=== PATIENT | female | born 1990 | race Caucasian/White ===

== ENCOUNTER 2021-01-14 19:15 | Emergency (ER) | payer OTHER ==
[2021-01-14 19:22] VITALS: RESP 18
[2021-01-14 19:23] LABS: Glucose,Whole Blood 92 mg/dL (75-99)
[2021-01-14] MEDS ORDERED: SODIUM CHLORIDE 0.9% 1,000 ML IV STA (19:54)
[2021-01-14 20:12] LABS: Appearance,Urine Clear (Clear); Bilirubin,Urine Negative (Negative); Blood,Urine Negative (Negative); Color,Urine Light Yellow; Glucose,Urine (UA) Negative (Negative); Ketones,Urine Negative (Negative); Leukocyte Esterase,Urine Negative (Negative); Nitrite,Urine Negative (Negative); Protein,Urine Negative (Negative); Specific Gravity,Urine 1.005 (1.001-1.035); Urobilinogen,Urine <2.0 mg/dL (<2.0)
[2021-01-14 20:15] VITALS: PULSE 95
[2021-01-14 20:24] LABS: ALT 26 U/L (4-34); AST 27 U/L (14-36); African American GFR (CKD) >90 (>60 ml/min/1.73 sqM); Albumin 4.5 g/dL (3.5-5.0); Alkaline Phosphatase 78 U/L (38-126); Anion Gap 9 mmol/L; Blood Urea Nitrogen 13 mg/dL (7-17); Calcium 9.9 mg/dL (8.4-10.2); Carbon Dioxide 25 mmol/L (22-30); Chloride 103 mmol/L (98-107); Glucose 91 mg/dL (74-99); Non-African American GFR(CKD) >90 (>60 ml/min/1.73 sqM); Potassium 4.4 mmol/L (3.5-5.1); Sodium 137 mmol/L (137-145); Total Bilirubin 0.3 mg/dL (0.2-1.3); Total Protein 7.8 g/dL (6.3-8.2)
[2021-01-14 20:45] LABS: Basophils # (A) 0.1 k/uL (0-0.2); Basophils % (A) 1 %; Eosinophils # (A) 0.1 k/uL (0-0.7); Eosinophils % (A) 1 %; HCT 42.9 % (34.0-46.0); HGB 14.6 gm/dL (11.4-16.0); Lymphocytes # (A) 3.1 k/uL (1.0-4.8); Lymphocytes % (A) 31 %; MCH 30.3 pg (25.0-35.0); MCV 89.1 fL (80.0-100.0); Mean Platelet Volume 7.3; Monocytes # (A) 0.5 k/uL (0-1.0); Monocytes % (A) 5 %; Neutrophils % (A) 61 %; Platelet Count 351 k/uL (150-450); RBC 4.81 m/uL (3.80-5.40); RDW 13.4 % (11.5-15.5); WBC 9.8 k/uL (3.8-10.6)
--- NOTE | 2021-01-14 21:06 | CT ---
EXAMINATION TYPE: CT brain wo con DATE OF EXAM: 01/14/2021 COMPARISON: None available. HISTORY: Alterned, unequal pupils, hx migrains/auoras CT DLP: 1080.4 mGycm. Automated Exposure Control for Dose Reduction was Utilized. TECHNIQUE: CT scan of the head is performed without contrast. FINDINGS: There is no acute intracranial hemorrhage, mass effect, or midline shift identified. The ventricles and sulci are within normal limits in size. The globes are intact and the visualized sin uses are clear. IMPRESSION: No acute intracranial hemorrhage, mass effect, or midline shift is seen.
--- NOTE | 2021-01-14 21:23 | ED ---
General Adult HPI - General Chief complaint: Dizziness Stated complaint: Dizziness Time Seen by Provider: 01/14/21 19:54 Source: EMS Mode of arrival: EMS Limitations: no limitations - History of Present Illness Initial comments: Aminta is a 30-year-old female with a history of migraines who presents to the ER today via ambulance from work for evaluation of vision change, headache and period of confusion. Patient states that she got to work her coworkers noted that her pupils seem to be dilated left greater than right. Patient states that she just felt off. She was trying to obtain medical records from files and grandmother on files multiple times. She then felt very lightheaded and just very off her coworker called EMS. Upon their arrival patient reported feeling much better however she does have a headache. She has a history of migraine she did take migraine medication for this today. Patient does wear eye contacts and also uses Visine eyedrops that she's never noted this caused dilation arise before. - Related Data Home Medications Medication Instructions Recorded Confirmed Dextroamphetamine/Amphetamine 20 mg PO BID 01/14/21 01/14/21 [Adderall] Escitalopram [Lexapro] 10 mg PO HS 01/14/21 01/14/21 Fluticasone Nasal [place] [Flonase 1 spr EA NOSTRIL DAILY PRN 01/14/21 01/14/21 Nasal [place]] Galcanezumab-Gnlm [Emgality] 120 mg SQ Q30D 01/14/21 01/14/21 Ibuprofen [Motrin] 800 mg PO Q8H PRN 01/14/21 01/14/21 Rimegepant Sulfate [Nurtec Odt] 75 mg PO DAILY PRN 01/14/21 01/14/21 clonazePAM [KlonoPIN] 0.5 mg PO DAILY PRN 01/14/21 01/14/21 lisinopriL [Zestril] 10 mg PO HS 01/14/21 01/14/21 methocarbamoL [Robaxin] 500 mg PO QID PRN 01/14/21 01/14/21 Allergies Allergy/AdvReac Type Severity Reaction Status Date / Time No Known Allergies Allergy Verified 01/14/21 20:44 Review of Systems ROS Statement: Those systems with pertinent positive or pertinent negative responses have been documented in the HPI. ROS Other: All systems not noted in ROS Statement are negative. Past Medical History Additional Past Medical History / Comment(s): Migraines History of Any Multi-Drug Resistant Organisms: None Reported Additional Past Surgical History / Comment(s): [place] teeth Past Psychological History: Depression Smoking Status: Never smoker Past Alcohol Use History: None Reported Past Drug Use History: Marijuana General Exam - General Exam Comments Initial Comments: Physical Exam GENERAL: Patient is well-developed and well-nourished. Patient is nontoxic and well- hydrated and is in no distress. HENT: Normocephalic, Atraumatic. EYES: Pupil 5 mm right pupil 4 mm both are reactive, extraocular movements intact PULMONARY: Unlabored respirations. No audible rales rhonchi or wheezing was noted. CARDIOVASCULAR: There is a regular rate and rhythm without any murmurs gallops or rubs. ABDOMEN: Soft and nontender with normal bowel sounds. SKIN: Skin is clear with no lesions or rashes and otherwise unremarkable. : Deferred NEUROLOGIC: Patient is alert and oriented x3. Moving all extremities spontaneously MUSCULOSKELETAL: Normal extremities with adequate strength and full range of motion. No lower extremity swelling or edema. No calf tenderness. PSYCHIATRIC: Normal psychiatric evaluation. Limitations: no limitations Course Vital Signs 01/14/21 01/14/21 01/14/21 19:16 20:12 21:59 Temperature 98.6 F 98.3 F Pulse Rate 101 H 95 95 Respiratory 18 18 18 Rate Blood Pressure 131/94 120/86 O2 Sat by Pulse 97 97 97 Oximetry 01/14/21 22:11 Temperature Pulse Rate Respiratory Rate Blood Pressure 114/67 O2 Sat by Pulse Oximetry EKG Findings - EKG Comments: EKG Findings:: EKG obtained due to headache and vision change, EKG obtained in 1946 rate is 80 rhythm is sinus normal axis normal intervals no acute ST elevations or depressions no evidence of ischemia or infarction Medical Decision Making - Medical Decision Making The patient was seen and evaluated history is obtained from patient, upon my evaluation the patient is awake alert oriented no acute complaints she does have some and escorted uncertain if this is a sign for her, she does wear contact lenses she did use Visine eyedrops I did discuss that this can cause I dilation she was unaware of this Pupils are reactive and round, no significant vision changes, head CT was negative labs are unremarkable patient remained a symptomatically stay in ER and was comfortable with the plan for discharge home - Lab Data Result diagrams: 01/14/21 20:02 01/14/21 20:02 Lab Results 01/14/21 01/14/21 01/14/21 Range/Units 19:20 20:02 20:02 WBC 9.8 (3.8-10.6) k/uL RBC 4.81 (3.80-5.40) m/uL Hgb 14.6 (11.4-16.0) gm/dL Hct 42.9 (34.0-46.0) % MCV 89.1 (80.0-100.0) fL MCH 30.3 (25.0-35.0) pg MCHC 34.0 (31.0-37.0) g/dL RDW 13.4 (11.5-15.5) % Plt Count 351 (150-450) k/uL MPV 7.3 Neutrophils % 61 % Lymphocytes % 31 % Monocytes % 5 % Eosinophils % 1 % Basophils % 1 % Neutrophils # 6.0 (1.3-7.7) k/uL Lymphocytes # 3.1 (1.0-4.8) k/uL Monocytes # 0.5 (0-1.0) k/uL Eosinophils # 0.1 (0-0.7) k/uL Basophils # 0.1 (0-0.2) k/uL Sodium (137-145) mmol/L Potassium (3.5-5.1) mmol/L Chloride (98-107) mmol/L Carbon Dioxide (22-30) mmol/L Anion Gap mmol/L BUN (7-17) mg/dL Creatinine (0.52-1.04) mg/dL Est GFR (CKD-EPI)AfAm (>60 ml/min/1.73 sqM) Est GFR (CKD-EPI)NonAf (>60 ml/min/1.73 sqM) Glucose (74-99) mg/dL POC Glucose (mg/dL) 92 (75-99) mg/dL POC Glu [employer] ID Sammar[place], Elly Calcium (8.4-10.2) mg/dL Total Bilirubin (0.2-1.3) mg/dL AST (14-36) U/L ALT (4-34) U/L Alkaline Phosphatase (38-126) U/L Total Protein (6.3-8.2) g/dL Albumin (3.5-5.0) g/dL Urine Color Light Yellow Urine Appearance Clear (Clear) Urine pH 6.0 (5.0-8.0) Ur Specific [place] 1.005 (1.001-1.035) Urine Protein Negative (Negative) Urine Glucose (UA) Negative (Negative) Urine Ketones Negative (Negative) Urine Blood Negative (Negative) Urine Nitrite Negative (Negative) Urine Bilirubin Negative (Negative) Urine Urobilinogen <2.0 (<2.0) mg/dL Ur Leukocyte Esterase Negative (Negative) Urine HCG, Qual (Not Detectd) 01/14/21 01/14/21 Range/Units 20:02 20:02 WBC (3.8-10.6) k/uL RBC (3.80-5.40) m/uL Hgb (11.4-16.0) gm/dL Hct (34.0-46.0) % MCV (80.0-100.0) fL MCH (25.0-35.0) pg MCHC (31.0-37.0) g/dL RDW (11.5-15.5) % Plt Count (150-450) k/uL MPV Neutrophils % % Lymphocytes % % Monocytes % % Eosinophils % % Basophils % % Neutrophils # (1.3-7.7) k/uL Lymphocytes # (1.0-4.8) k/uL Monocytes # (0-1.0) k/uL Eosinophils # (0-0.7) k/uL Basophils # (0-0.2) k/uL Sodium 137 (137-145) mmol/L Potassium 4.4 (3.5-5.1) mmol/L Chloride 103 (98-107) mmol/L Carbon Dioxide 25 (22-30) mmol/L Anion Gap 9 mmol/L BUN 13 (7-17) mg/dL Creatinine 0.79 (0.52-1.04) mg/dL Est GFR (CKD-EPI)AfAm >90 (>60 ml/min/1.73 sqM) Est GFR (CKD-EPI)NonAf >90 (>60 ml/min/1.73 sqM) Glucose 91 (74-99) mg/dL POC Glucose (mg/dL) (75-99) mg/dL POC Glu [employer] ID Calcium 9.9 (8.4-10.2) mg/dL Total Bilirubin 0.3 (0.2-1.3) mg/dL AST 27 (14-36) U/L ALT 26 (4-34) U/L Alkaline Phosphatase 78 (38-126) U/L Total Protein 7.8 (6.3-8.2) g/dL Albumin 4.5 (3.5-5.0) g/dL Urine Color Urine Appearance (Clear) Urine pH (5.0-8.0) Ur Specific [place] (1.001-1.035) Urine Protein (Negative) Urine Glucose (UA) (Negative) Urine Ketones (Negative) Urine Blood (Negative) Urine Nitrite (Negative) Urine Bilirubin (Negative) Urine Urobilinogen (<2.0) mg/dL Ur Leukocyte Esterase (Negative) Urine HCG, Qual Not Detected (Not Detectd) Disposition Clinical Impression: Anisocoria, Headache Disposition: HOME SELF-CARE Condition: Stable Instructions (If sedation given, give patient instructions): Acute Headache (DC) Is patient prescribed a controlled substance at d/c from ED?: No Referrals: Harry Stevens III, MD [Primary Care Provider] - 1-2 days
[2021-01-14 22:01] VITALS: TEMP 98.3
[2021-01-14 22:12] VITALS: BP 114/67
== END 2021-01-14 22:12 | disposition home or self-care (01) ==
LOC: EC 19:15
DX: H57.02 Anisocoria (principal); F32.9 Major depressive disorder, single episode, unspecified; F12.90 Cannabis use, unspecified, uncomplicated; Z79.1 Long term (current) use of non-steroidal anti-inflammatories (NSAID); Z79.899 Other long term (current) drug therapy
CPT/HCPCS: 36415; 70450; 80053; 81003; 81025; 85025; 93005; 96360; 96361; 99285

== ENCOUNTER 2021-05-24 10:14 | Emergency (ER) | payer OTHER ==
[2021-05-24 10:20] VITALS: TEMP 97.3
[2021-05-24] MEDS ORDERED: SODIUM CHLORIDE 0.9% 1,000 ML IV STA (10:43)
[2021-05-24] MEDS ORDERED: diphenhydrAMINE 50 MG/ML 1 ML VIAL IVP STA (10:43)
[2021-05-24] MEDS ORDERED: METOCLOPRAMIDE 5 MG/ML 2 ML VIAL IVP STA (10:43)
--- NOTE | 2021-05-24 10:55 | ED ---
General Adult HPI - General Chief complaint: Abdominal Pain Stated complaint: possible appendicitis, Abd pain Time Seen by Provider: 05/24/21 10:21 Source: patient, RN notes reviewed Mode of arrival: wheelchair Limitations: no limitations - History of Present Illness Initial comments: 30-year-old female presents to the emergency room for a chief complaint of nausea and vomiting. Patient has had nausea vomiting for 3 days now. Patient states she went to [facility] yesterday but they were taking too long so left to go take a hot shower as this is the only thing that helps. Patient states she has had similar bouts of this before but they usually don't last as long. States she has mid abdominal pain. Her doctor told her it could be appendicitis but she cancelled her appointment because she thought she was getting better. Denies fevers. Denies history of abdominal surgeries. Does admit to smoking marijuana.Patient has no other complaints at this time including shortness of breath, chest pain, headache, or visual changes. - Related Data Home Medications Medication Instructions Recorded Confirmed Dextroamphetamine/Amphetamine 20 mg PO BID PRN 01/14/21 05/24/21 [Adderall] Escitalopram [Lexapro] 10 mg PO HS 01/14/21 05/24/21 Fluticasone Nasal [place] [Flonase 1 spr EA NOSTRIL DAILY PRN 01/14/21 05/24/21 Nasal [place]] Galcanezumab-Gnlm [Emgality] 120 mg SQ Q30D 01/14/21 05/24/21 Ibuprofen [Motrin] 800 mg PO Q8H PRN 01/14/21 05/24/21 Rimegepant Sulfate [Nurtec Odt] 75 mg PO DAILY PRN 01/14/21 05/24/21 clonazePAM [KlonoPIN] 0.5 mg PO DAILY PRN 01/14/21 05/24/21 lisinopriL [Zestril] 10 mg PO HS 01/14/21 05/24/21 methocarbamoL [Robaxin] 500 mg PO QID PRN 01/14/21 05/24/21 Previous Rx's Medication Instructions Recorded Ondansetron [Zofran ODT] 4 mg PO Q8HR PRN #15 tab 05/24/21 Allergies Allergy/AdvReac Type Severity Reaction Status Date / Time No Known Allergies Allergy Verified 05/24/21 11:48 Review of Systems ROS Statement: Those systems with pertinent positive or pertinent negative responses have been documented in the HPI. ROS Other: All systems not noted in ROS Statement are negative. Past Medical History Additional Past Medical History / Comment(s): Migraines History of Any Multi-Drug Resistant Organisms: None Reported Additional Past Surgical History / Comment(s): [place] teeth Past Psychological History: Depression Smoking Status: Never smoker Past Alcohol Use History: None Reported Past Drug Use History: Marijuana General Exam Limitations: no limitations General appearance: alert, in no apparent distress Head exam: Present: atraumatic Eye exam: Present: normal appearance, PERRL, EOMI. Absent: scleral icterus, conjunctival injection ENT exam: Present: normal exam, mucous membranes moist Neck exam: Present: normal inspection, full ROM. Absent: tenderness Respiratory exam: Present: normal lung sounds bilaterally. Absent: respiratory distress, wheezes Cardiovascular Exam: Present: regular rate, normal rhythm, normal heart sounds GI/Abdominal exam: Present: soft, tenderness (RLQ tenderness), normal bowel sounds. Absent: distended Neurological exam: Present: alert Course Vital Signs 05/24/21 10:18 Temperature 97.3 F L Pulse Rate 95 Respiratory 16 Rate Blood Pressure 139/105 O2 Sat by Pulse 97 Oximetry Medical Decision Making - Medical Decision Making vitals stable. Patient is well-appearing. Patient does have a mild white count which is likely reactive to vomiting. CMP is unremarkable. Urinalysis con taminated with squamous cells. The hCG is not detected. CT abdomen and pelvis shows ovaries appear to be enlarged with multiple cysts suspected. She was given several longer medications and did have significant improvement in symptoms. Patient states the only other thing that helps is hot showers. I suspect this is likely related to cannabis hyperemesis syndrome given she does admit to smoking marijuana. Discussed this possibility with patient and she is aware. Otherwise we will try Zofran and follow up with primary care. - Lab Data Result diagrams: 05/24/21 11:05/24/21 11: Lab Results 05/24/21 05/24/21 05/24/21 Range/Units 11: 11: 11: WBC 14.4 H (3.8-10.6) k/uL RBC 4.92 (3.80-5.40) m/uL Hgb 14.9 (11.4-16.0) gm/dL Hct 43.7 (34.0-46.0) % MCV 88.8 (80.0-100.0) fL MCH 30.3 (25.0-35.0) pg MCHC 34.1 (31.0-37.0) g/dL RDW 13.1 (11.5-15.5) % Plt Count 379 (150-450) k/uL MPV 7.1 Neutrophils % 78 % Lymphocytes % 16 % Monocytes % 5 % Eosinophils % 0 % Basophils % 0 % Neutrophils # 11.2 H (1.3-7.7) k/uL Lymphocytes # 2.3 (1.0-4.8) k/uL Monocytes # 0.7 (0-1.0) k/uL Eosinophils # 0.0 (0-0.7) k/uL Basophils # 0.0 (0-0.2) k/uL Sodium (137-145) mmol/L Potassium (3.5-5.1) mmol/L Chloride (98-107) mmol/L Carbon Dioxide (22-30) mmol/L Anion Gap mmol/L BUN (7-17) mg/dL Creatinine (0.52-1.04) mg/dL Est GFR (CKD-EPI)AfAm (>60 ml/min/1.73 sqM) Est GFR (CKD-EPI)NonAf (>60 ml/min/1.73 sqM) Glucose (74-99) mg/dL Calcium (8.4-10.2) mg/dL Total Bilirubin (0.2-1.3) mg/dL AST (14-36) U/L ALT (4-34) U/L Alkaline Phosphatase (38-126) U/L Total Protein (6.3-8.2) g/dL Albumin (3.5-5.0) g/dL Amylase (30-110) U/L Lipase (23-300) U/L Urine Color Yellow Urine Appearance Clear (Clear) Urine pH 8.0 (5.0-8.0) Ur Specific [place] >1.050 H (1.001-1.035) Urine Protein Trace H (Negative) Urine Glucose (UA) Negative (Negative) Urine Ketones Trace H (Negative) Urine Blood Negative (Negative) Urine Nitrite Negative (Negative) Urine Bilirubin Negative (Negative) Urine Urobilinogen <2.0 (<2.0) mg/dL Ur Leukocyte Esterase Small H (Negative) Urine RBC 12 H (0-5) /hpf Urine WBC 2 (0-5) /hpf Ur Squamous Epith Cells 6 H (0-4) /hpf Urine Bacteria Rare H (None) /hpf Urine Mucus Rare H (None) /hpf Urine HCG, Qual Not Detected (Not Detectd) 05/24/21 Range/Units 11:01 WBC (3.8-10.6) k/uL RBC (3.80-5.40) m/uL Hgb (11.4-16.0) gm/dL Hct (34.0-46.0) % MCV (80.0-100.0) fL MCH (25.0-35.0) pg MCHC (31.0-37.0) g/dL RDW (11.5-15.5) % Plt Count (150-450) k/uL MPV Neutrophils % % Lymphocytes % % Monocytes % % Eosinophils % % Basophils % % Neutrophils # (1.3-7.7) k/uL Lymphocytes # (1.0-4.8) k/uL Monocytes # (0-1.0) k/uL Eosinophils # (0-0.7) k/uL Basophils # (0-0.2) k/uL Sodium 139 (137-145) mmol/L Potassium 3.8 (3.5-5.1) mmol/L Chloride 107 (98-107) mmol/L Carbon Dioxide 23 (22-30) mmol/L Anion Gap 9 mmol/L BUN 15 (7-17) mg/dL Creatinine 0.73 (0.52-1.04) mg/dL Est GFR (CKD-EPI)AfAm >90 (>60 ml/min/1.73 sqM) Est GFR (CKD-EPI)NonAf >90 (>60 ml/min/1.73 sqM) Glucose 134 H (74-99) mg/dL Calcium 10.0 (8.4-10.2) mg/dL Total Bilirubin 0.5 (0.2-1.3) mg/dL AST 22 (14-36) U/L ALT 22 (4-34) U/L Alkaline Phosphatase 64 (38-126) U/L Total Protein 7.8 (6.3-8.2) g/dL Albumin 4.4 (3.5-5.0) g/dL Amylase 98 (30-110) U/L Lipase 42 (23-300) U/L Urine Color Urine Appearance (Clear) Urine pH (5.0-8.0) Ur Specific [place] (1.001-1.035) Urine Protein (Negative) Urine Glucose (UA) (Negative) Urine Ketones (Negative) Urine Blood (Negative) Urine Nitrite (Negative) Urine Bilirubin (Negative) Urine Urobilinogen (<2.0) mg/dL Ur Leukocyte Esterase (Negative) Urine RBC (0-5) /hpf Urine WBC (0-5) /hpf Ur Squamous Epith Cells (0-4) /hpf Urine Bacteria (None) /hpf Urine Mucus (None) /hpf Urine HCG, Qual (Not Detectd) Disposition Clinical Impression: Nausea & vomiting Disposition: HOME SELF-CARE Condition: Good Instructions (If sedation given, give patient instructions): Acute Nausea and Vomiting (ED) Additional Instructions: Please take medication as directed. Follow-up with your doctor in one to 2 days. Return to the emergency room for any worsening symptoms. Prescriptions: Ondansetron [Zofran ODT] 4 mg PO Q8HR PRN #15 tab PRN Reason: Nausea Is patient prescribed a controlled substance at d/c from ED?: No Referrals: Harry Stevens III, MD [Primary Care Provider] - 1-2 days Time of Disposition: 13:57
[2021-05-24 11:26] LABS: Basophils % (A) 0 %; Eosinophils % (A) 0 %; HCT 43.7 % (34.0-46.0); HGB 14.9 gm/dL (11.4-16.0); Lymphocytes # (A) 2.3 k/uL (1.0-4.8); Lymphocytes % (A) 16 %; MCH 30.3 pg (25.0-35.0); MCHC 34.1 g/dL (31.0-37.0); MCV 88.8 fL (80.0-100.0); Mean Platelet Volume 7.1; Monocytes # (A) 0.7 k/uL (0-1.0); Monocytes % (A) 5 %; Neutrophils # (A) 11.2 k/uL (1.3-7.7); Neutrophils % (A) 78 %; Platelet Count 379 k/uL (150-450); RBC 4.92 m/uL (3.80-5.40); RDW 13.1 % (11.5-15.5); WBC 14.4 k/uL (3.8-10.6)
[2021-05-24 11:48] LABS: ALT 22 U/L (4-34); AST 22 U/L (14-36); African American GFR (CKD) >90 (>60 ml/min/1.73 sqM); Albumin 4.4 g/dL (3.5-5.0); Alkaline Phosphatase 64 U/L (38-126); Amylase 98 U/L (30-110); Anion Gap 9 mmol/L; Blood Urea Nitrogen 15 mg/dL (7-17); Carbon Dioxide 23 mmol/L (22-30); Chloride 107 mmol/L (98-107); Glucose 134 mg/dL (74-99); Lipase 42 U/L (23-300); Non-African American GFR(CKD) >90 (>60 ml/min/1.73 sqM); Potassium 3.8 mmol/L (3.5-5.1); Sodium 139 mmol/L (137-145); Total Bilirubin 0.5 mg/dL (0.2-1.3); Total Protein 7.8 g/dL (6.3-8.2)
[2021-05-24] MEDS ORDERED: ONDANSETRON 4 MG/2 ML VIAL IVP STA ×2 (12:17→13:12)
--- NOTE | 2021-05-24 13:07 | CT ---
EXAMINATION TYPE: CT abdomen pelvis w con DATE OF EXAM: 05/24/2021 COMPARISON: None HISTORY: periumbilical pain, nausea, vomiting CT DLP: 1344.5 mGycm Automated exposure control for dose reduction was used. CONTRAST: CT scan of the abdomen pelvis is performed with IV Contrast, patient injected with 100 mL of Isovue 3 00. FINDINGS- LUNG BASES- No significant abnormality is appreciated. LIVER/GB- No gross abnormality is appreciated. PANCREAS- No gross abnormality is seen. SPLEEN- No gross abnormality is seen. ADRENALS- No gross abnormality is seen. KIDNEYS/BLADDER- no hydronephrosis nephrolithiasis or renal mass. BOWEL-bowel gas pattern nonspecific with no obstruction. Occasional diverticula of the colon.. Belén l appendix. LYMPH NODES- No greater than 1cm abdominal or pelvic lymph nodes areappreciated. OSSEOUS STRUCTURES- No significant abnormality is seen. OTHER- ovaries appear to be enlarged in the left with multiple cyst suspected correlate clinically. Intrauterine device noted. IMPRESSION- 1. No prominence of the left orbit with multiple suspected cysts correlate clinically.
[2021-05-24 13:38] LABS: Appearance,Urine Clear (Clear); Bacteria,Urine Rare /hpf; Bilirubin,Urine Negative (Negative); Blood,Urine Negative (Negative); Color,Urine Yellow; Glucose,Urine (UA) Negative (Negative); Ketones,Urine Trace (Negative); Leukocyte Esterase,Urine Small (Negative); Mucus,Urine Rare /hpf; Nitrite,Urine Negative (Negative); Protein,Urine Trace (Negative); RBC,Urine 12 /hpf (0-5); Squamous Epithelial Cell,Urine 6 /hpf (0-4); Urobilinogen,Urine <2.0 mg/dL (<2.0); WBC,Urine 2 /hpf (0-5)
[2021-05-24 13:40] LABS: Specific Gravity,Urine >1.050 (1.001-1.035)
[2021-05-24 15:01] VITALS: BP 129/85; PULSE 80; RESP 18
== END 2021-05-24 14:18 | disposition home or self-care (01) ==
LOC: EC 10:14
DX: R11.2 Nausea with vomiting, unspecified (principal); R10.9 Unspecified abdominal pain
CPT/HCPCS: 36415; 80053; 82150; 83690; 85025; 81001; 81025; 74177; 99284; 96374; 96375; 96376; 96361; J1200; J2765; J2405; Q9967

== ENCOUNTER 2022-02-28 08:57 | Emergency (ER) | payer OTHER ==
[2022-02-28 09:08] VITALS: RESP 18
[2022-02-28] MEDS ORDERED: SODIUM CHLORIDE 0.9% 2,000 ML IV STA (09:15)
[2022-02-28] MEDS ORDERED: ONDANSETRON 4 MG/2 ML VIAL IVP STA (09:15)
[2022-02-28 09:42] LABS: Basophils % (A) 0 %; Eosinophils % (A) 0 %; HCT 47.6 % (34.0-46.0); Lymphocytes # (A) 2.6 k/uL (1.0-4.8); Lymphocytes % (A) 22 %; MCH 30.7 pg (25.0-35.0); MCHC 33.7 g/dL (31.0-37.0); Mean Platelet Volume 7.2; Monocytes # (A) 0.5 k/uL (0-1.0); Monocytes % (A) 5 %; Neutrophils # (A) 8.2 k/uL (1.3-7.7); Neutrophils % (A) 71 %; Platelet Count 446 k/uL (150-450); RBC 5.23 m/uL (3.80-5.40); WBC 11.5 k/uL (3.8-10.6)
[2022-02-28 09:51] LABS: Appearance,Urine Cloudy (Clear); Bacteria,Urine Occasional /hpf; Bilirubin,Urine 1+ (Negative); Blood,Urine Trace (Negative); Calcium Oxalate Crystals,Urine Moderate /hpf; Color,Urine Yellow; Glucose,Urine (UA) Negative (Negative); Ketones,Urine 1+ (Negative); Leukocyte Esterase,Urine Large (Negative); Mucus,Urine Many /hpf; Nitrite,Urine Negative (Negative); Protein,Urine 1+ (Negative); RBC,Urine 16 /hpf (0-5); Specific Gravity,Urine 1.036 (1.001-1.035); Squamous Epithelial Cell,Urine 11 /hpf (0-4); WBC,Urine 20 /hpf (0-5)
--- NOTE | 2022-02-28 09:51 | ED ---
General Adult HPI - General Chief complaint: Nausea/Vomiting/Diarrhea Stated complaint: 6wks preg/NVD Time Seen by Provider: 02/28/22 09:04 Source: patient, RN notes reviewed Mode of arrival: wheelchair Limitations: no limitations - History of Present Illness Initial comments: 31-year-old female presents emergency Department chief complaint of nausea vom iting . Patient states she is proximal was 6 weeks patient is A0 has not scheduled be [facility] appointment at this point she states she has a mild abdominal pain around periumbilical region denies any vaginal bleeding or vaginal discharge. Denies fevers or chills no dysuria no diarrhea no constipation. - Related Data Home Medications Medication Instructions Recorded Confirmed Dextroamphetamine/Amphetamine 20 mg PO BID PRN 01/14/21 05/24/21 [Adderall] Escitalopram [Lexapro] 10 mg PO HS 01/14/21 05/24/21 Fluticasone Nasal [place] [Flonase 1 spr EA NOSTRIL DAILY PRN 01/14/21 05/24/21 Nasal [place]] Galcanezumab-Gnlm [Emgality] 120 mg SQ Q30D 01/14/21 05/24/21 Ibuprofen [Motrin] 800 mg PO Q8H PRN 01/14/21 05/24/21 Rimegepant Sulfate [Nurtec Odt] 75 mg PO DAILY PRN 01/14/21 05/24/21 clonazePAM [KlonoPIN] 0.5 mg PO DAILY PRN 01/14/21 05/24/21 lisinopriL [Zestril] 10 mg PO HS 01/14/21 05/24/21 methocarbamoL [Robaxin] 500 mg PO QID PRN 01/14/21 05/24/21 Previous Rx's Medication Instructions Recorded Ondansetron [Zofran ODT] 4 mg PO Q8HR PRN #15 tab 05/24/21 Allergies Allergy/AdvReac Type Severity Reaction Status Date / Time No Known Allergies Allergy Verified 02/28/22 09:03 Review of Systems ROS Statement: Those systems with pertinent positive or pertinent negative responses have been documented in the HPI. ROS Other: All systems not noted in ROS Statement are negative. Past Medical History Additional Past Medical History / Comment(s): Migraines, UTI History of Any Multi-Drug Resistant Organisms: None Reported Additional Past Surgical History / Comment(s): [place] teeth Past Psychological History: Depression Smoking Status: Never smoker Past Alcohol Use History: None Reported Past Drug Use History: None Reported General Exam Limitations: no limitations General appearance: alert, in no apparent distress Head exam: Present: atraumatic, normocephalic, normal inspection Eye exam: Present: normal appearance, PERRL, EOMI. Absent: scleral icterus, conjunctival injection, periorbital swelling ENT exam: Present: normal exam, normal oropharynx, mucous membranes moist Neck exam: Present: normal inspection, full ROM. Absent: tenderness, meningismus, lymphadenopathy Respiratory exam: Present: normal lung sounds bilaterally. Absent: respiratory distress, wheezes, rales, rhonchi, stridor Cardiovascular Exam: Present: regular rate, normal rhythm, normal heart sounds. Absent: systolic murmur, diastolic murmur, rubs, gallop, clicks GI/Abdominal exam: Present: soft, normal bowel sounds. Absent: distended, tenderness, guarding, rebound, rigid Course Vital Signs 02/28/22 09:00 Temperature 98.6 F Pulse Rate 91 Respiratory 18 Rate Blood Pressure 151/93 O2 Sat by Pulse 98 Oximetry Medical Decision Making - Medical Decision Making 31-year-old female presented for nausea vomiting . Patient was reeval uated and states that her nausea has greatly improved. She did shovel this with her prior pregnancies she has no complaints of abdominal pain her abdomen is soft and nontender. I didn't updated on ultrasound and blood work results patient had an elevated hCG at 3700 with no ultrasound findings takes fingers is concerning for possible miscarriage, ectopic or early IUP. She needs to have blood work rechecked in 2 days she is to have very close follow-up with [facility] in or return for any pain or any other complaints. - Lab Data Result diagrams: 02/28/22 09:26 02/28/22 09:26 Lab Results 02/28/22 02/28/22 02/28/22 Range/Units 09:17 09:26 09:26 WBC 11.5 H (3.8-10.6) k/uL RBC 5.23 (3.80-5.40) m/uL Hgb 16.0 (11.4-16.0) gm/dL Hct 47.6 H (34.0-46.0) % MCV 91.0 (80.0-100.0) fL MCH 30.7 (25.0-35.0) pg MCHC 33.7 (31.0-37.0) g/dL RDW 14.0 (11.5-15.5) % Plt Count 446 (150-450) k/uL MPV 7.2 Neutrophils % 71 % Lymphocytes % 22 % Monocytes % 5 % Eosinophils % 0 % Basophils % 0 % Neutrophils # 8.2 H (1.3-7.7) k/uL Lymphocytes # 2.6 (1.0-4.8) k/uL Monocytes # 0.5 (0-1.0) k/uL Eosinophils # 0.0 (0-0.7) k/uL Basophils # 0.0 (0-0.2) k/uL Sodium (137-145) mmol/L Potassium (3.5-5.1) mmol/L Chloride (98-107) mmol/L Carbon Dioxide (22-30) mmol/L Anion Gap mmol/L BUN (7-17) mg/dL Creatinine (0.52-1.04) mg/dL Est GFR (CKD-EPI)AfAm (>60 ml/min/1.73 sqM) Est GFR (CKD-EPI)NonAf (>60 ml/min/1.73 sqM) Glucose (74-99) mg/dL Calcium (8.4-10.2) mg/dL Total Bilirubin (0.2-1.3) mg/dL AST (14-36) U/L ALT (4-34) U/L Alkaline Phosphatase (38-126) U/L Total Protein (6.3-8.2) g/dL Albumin (3.5-5.0) g/dL HCG, Quant mIU/mL Urine Color Yellow Urine Appearance Cloudy H (Clear) Urine pH 7.0 (5.0-8.0) Ur Specific [place] 1.036 H (1.001-1.035) Urine Protein 1+ H (Negative) Urine Glucose (UA) Negative (Negative) Urine Ketones 1+ H (Negative) Urine Blood Trace H (Negative) Urine Nitrite Negative (Negative) Urine Bilirubin 1+ H (Negative) Urine Urobilinogen 4.0 (<2.0) mg/dL Ur Leukocyte Esterase Large H (Negative) Urine RBC 16 H (0-5) /hpf Urine WBC 20 H (0-5) /hpf Ur Squamous Epith Cells 11 H (0-4) /hpf Calcium Oxalate Crystal Moderate H (None) /hpf Urine Bacteria Occasional H (None) /hpf Urine Mucus Many H (None) /hpf Urine HCG, Qual Detected (Not Detectd) 02/28/22 02/28/22 Range/Units 09:26 09:26 WBC (3.8-10.6) k/uL RBC (3.80-5.40) m/uL Hgb (11.4-16.0) gm/dL Hct (34.0-46.0) % MCV (80.0-100.0) fL MCH (25.0-35.0) pg MCHC (31.0-37.0) g/dL RDW (11.5-15.5) % Plt Count (150-450) k/uL MPV Neutrophils % % Lymphocytes % % Monocytes % % Eosinophils % % Basophils % % Neutrophils # (1.3-7.7) k/uL Lymphocytes # (1.0-4.8) k/uL Monocytes # (0-1.0) k/uL Eosinophils # (0-0.7) k/uL Basophils # (0-0.2) k/uL Sodium 140 (137-145) mmol/L Potassium 3.4 L (3.5-5.1) mmol/L Chloride 104 (98-107) mmol/L Carbon Dioxide 22 (22-30) mmol/L Anion Gap 14 mmol/L BUN 10 (7-17) mg/dL Creatinine 0.82 (0.52-1.04) mg/dL Est GFR (CKD-EPI)AfAm >90 (>60 ml/min/1.73 sqM) Est GFR (CKD-EPI)NonAf >90 (>60 ml/min/1.73 sqM) Glucose 128 H (74-99) mg/dL Calcium 9.7 (8.4-10.2) mg/dL Total Bilirubin 0.6 (0.2-1.3) mg/dL AST 27 (14-36) U/L ALT 28 (4-34) U/L Alkaline Phosphatase 69 (38-126) U/L Total Protein 8.2 (6.3-8.2) g/dL Albumin 4.8 (3.5-5.0) g/dL HCG, Quant 3700.8 mIU/mL Urine Color Urine Appearance (Clear) Urine pH (5.0-8.0) Ur Specific [place] (1.001-1.035) Urine Protein (Negative) Urine Glucose (UA) (Negative) Urine Ketones (Negative) Urine Blood (Negative) Urine Nitrite (Negative) Urine Bilirubin (Negative) Urine Urobilinogen (<2.0) mg/dL Ur Leukocyte Esterase (Negative) Urine RBC (0-5) /hpf Urine WBC (0-5) /hpf Ur Squamous Epith Cells (0-4) /hpf Calcium Oxalate Crystal (None) /hpf Urine Bacteria (None) /hpf Urine Mucus (None) /hpf Urine HCG, Qual (Not Detectd) Disposition Clinical Impression: Nausea/vomiting in Disposition: HOME SELF-CARE Condition: Stable Instructions (If sedation given, give patient instructions): Acute Nausea and Vomiting (ED) Additional Instructions: Please have close follow-up with [facility]. Repeat lab work and 48 hours.Please return to the Emergency Department if symptoms worsen or any other concerns. Is patient prescribed a controlled substance at d/c from ED?: No Referrals: Harry Stevens III, MD [Primary Care Provider] - 1-2 days Time of Disposition: 11:08
[2022-02-28 09:54] LABS: ALT 28 U/L (4-34); AST 27 U/L (14-36); African American GFR (CKD) >90 (>60 ml/min/1.73 sqM); Albumin 4.8 g/dL (3.5-5.0); Alkaline Phosphatase 69 U/L (38-126); Anion Gap 14 mmol/L; Blood Urea Nitrogen 10 mg/dL (7-17); Calcium 9.7 mg/dL (8.4-10.2); Carbon Dioxide 22 mmol/L (22-30); Chloride 104 mmol/L (98-107); Glucose 128 mg/dL (74-99); Non-African American GFR(CKD) >90 (>60 ml/min/1.73 sqM); Potassium 3.4 mmol/L (3.5-5.1); Sodium 140 mmol/L (137-145); Total Bilirubin 0.6 mg/dL (0.2-1.3); Total Protein 8.2 g/dL (6.3-8.2)
[2022-02-28] MEDS ORDERED: METOCLOPRAMIDE 5 MG/ML 2 ML VIAL IVP STA (09:57)
[2022-02-28] MEDS ORDERED: diphenhydrAMINE 50 MG/ML 1 ML VIAL IVP STA (09:57)
--- NOTE | 2022-02-28 10:04 | US ---
EXAMINATION TYPE: Ultrasound OB <= 14 week fetus DATE OF EXAM: 02/28/2022 9:53 AM COMPARISON: NONE CLINICAL HISTORY: 31-year-old female pain. N/V EXAM PERFORMED: Transabdominal (TA) FINDINGS: EXAM MEASUREMENTS: GESTATIONAL AGE / DATING Physician Established: Not yet established Dates by LMP: (5 weeks/3 days) EDC: 10/28/2022 Dates by First Scan: No previous this is first scan Dates by Current Scan for: No IUP seen at this time MATERNAL ANATOMY Uterus: 8.4 x 6.1 x 5.6cm Right Ovary: 2.2 x 1.4 x 1.8cm Left Ovary: 3.6 x 2.0 x 2.6cm Post CDS / Adnexa: wnl Presence of free fluid: no Presence of corpus luteal cyst: not seen Presence of subchorionic bleed: no GESTATION / SURVEY IUP: No IUP seen at this time Date of LMP: 01/21/2022 Beta HcG (if available): Not available at time of exam IMPRESSION: The exam was performed with transabdominal technique. No visualized intrauterine . Note that the beta-hCG threshold for visualization of a gestational sac by transabdominal scanning is 2500. If there is a positive status, appropriate follow-up recommended to ensure the appearance o f a normal intrauterine . Failed and nonvisualized ectopic are in the differential at this time.
[2022-02-28 11:19] VITALS: BP 140/82; PULSE 72; TEMP 98.9
== END 2022-02-28 11:18 | disposition home or self-care (01) ==
LOC: EC 08:57
DX: O21.9 Vomiting of pregnancy, unspecified (principal); Z3A.01 Less than 8 weeks gestation of pregnancy
CPT/HCPCS: 36415; 80053; 85025; 81001; 81025; 84702; 87086; 76801; 99284; 96374; 96375; 96361; J1200; J2765; J2405

== ENCOUNTER → 2022-04-02 | Outpatient (CLI) | payer OTHER ==
--- NOTE | 2022-04-04 09:01 | US ---
EXAMINATION TYPE: Ultrasound OB <= 14 week fetus DATE OF EXAM: 04/02/2022 3:53 PM COMPARISON: 02/28/2022 CLINICAL HISTORY: 31-year-old female [id number] ENCOUNTER FOR OTHER SPECIFIED SCREENING. Viabili ty. . EXAM PERFORMED: Transabdominal (TA) FINDINGS: EXAM MEASUREMENTS: GESTATIONAL AGE / DATING Physician Established: Not yet established. Dates by LMP: (10 weeks/1 day) EDC: 10/28/2022 Dates by First Scan: This is first scan Dates by Current Scan for: (9 weeks/4 days) EDC: 11/01/2022 MATERNAL ANATOMY Uterus: 15.4 x 9.1 x 7.1 cm. Anteverted. Right Ovary: 4.3 x 3.1 x 2.2 cm. Left Ovary: 4.5 x 1.9 x 1.9 cm. Post CDS / Adnexa: Appear wnl Presence of free fluid: None seen. Presence of corpus luteal cyst: Not seen Presence of subchorionic bleed: No GESTATION / SURVEY CRL: 2.82 cm. (9 weeks/4 days) Yolk Sac (normal less than 6mm): 4.6 mm Heart Rate: 165 bpm Rhythm: Normal IUP: Viable IUP Nuchal Translucency 10-14wks (normal less than 3mm): Not well seen. Date of LMP: 01/21/2022 Beta HcG (if available): Not available. No perigestational bleed is seen. No pelvic free fluid identified. IMPRESSION: 1. Single live intrauterine with estimated gestational age of 10 weeks 1 day by LMP. Curren t ultrasound biometry is smaller but concordant at 9 weeks 4 days. Follow-up as clinically indicated. 2. Otherwise, complete survey recommended at 18-20 weeks.
== END | disposition home or self-care (01) ==
LOC: RADUSWWP 15:30
PROVIDERS: ATTEND Obstetrics & Gynecology
DX: Z36.89 Encounter for other specified antenatal screening (principal); Z3A.10 10 weeks gestation of pregnancy
CPT/HCPCS: 76801

== ENCOUNTER 2022-04-28 08:22 | Emergency (ER) | payer OTHER ==
[2022-04-28 08:33] VITALS: TEMP 98.5
[2022-04-28] MEDS ORDERED: ACETAMINOPHEN IV (For NPO) 1,000 MG in EMPTY BAG 1 BAG IVPB STA (08:54)
[2022-04-28] MEDS ORDERED: METOCLOPRAMIDE 5 MG/ML 2 ML VIAL IVP STA (08:54)
[2022-04-28] MEDS ORDERED: SODIUM CHLORIDE 0.9% 1,000 ML IV ONE (08:54)
--- NOTE | 2022-04-28 09:30 | ED ---
General Adult HPI - General Chief complaint: Headache Stated complaint: Headache,14wks preg Time Seen by Provider: 04/28/22 08:33 Source: patient, RN notes reviewed, old records reviewed Mode of arrival: ambulatory Limitations: no limitations - History of Present Illness Initial comments: This is a 31-year-old female with a past medical history including previous migraines presented to [facility] department for continued migraine. The patient is 14 weeks at this time and stated that she has had a migraine since Tuesday. The patient stated the migraine was starting on the right side temporal area is normal to the left side. The patient stated that it is a typical migraine for her including photophobia and phonophobia with intermittent nausea. 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 The patient was told by her STRUCTURES ENGINEER that Imitrex was safe in moderation and she did take this yesterday without any relief. Because the patient's bagging was continued and not relieved, the patient came to emergency department for evaluation. The patient did state that she has received occipital nerve blocks by her neurologist with minimal relief as well. The patient came today because she did not have any other medications to help with her pain and discomfort. The patient stated that she has intermittent vision loss in the left eye which is typical and baseline for her migraines. The patient stated that her vision is actually improved from previous migraines. The patient denied any other acute pain or complaints at this time and was resting in bed comfortably. The patient denied any fevers, chills as well as any nausea and vomiting. - Related Data Home Medications Medication Instructions Recorded Confirmed Dextroamphetamine/Amphetamine 20 mg PO BID PRN 01/14/21 05/24/21 [Adderall] Escitalopram [Lexapro] 10 mg PO HS 01/14/21 05/24/21 Fluticasone Nasal [place] [Flonase 1 spr EA NOSTRIL DAILY PRN 01/14/21 05/24/21 Nasal [place]] Galcanezumab-Gnlm [Emgality] 120 mg SQ Q30D 01/14/21 05/24/21 Ibuprofen [Motrin] 800 mg PO Q8H PRN 01/14/21 05/24/21 Rimegepant Sulfate [Nurtec Odt] 75 mg PO DAILY PRN 01/14/21 05/24/21 clonazePAM [KlonoPIN] 0.5 mg PO DAILY PRN 01/14/21 05/24/21 lisinopriL [Zestril] 10 mg PO HS 01/14/21 05/24/21 methocarbamoL [Robaxin] 500 mg PO QID PRN 01/14/21 05/24/21 Previous Rx's Medication Instructions Recorded Ondansetron [Zofran ODT] 4 mg PO Q8HR PRN #15 tab 05/24/21 Allergies Allergy/AdvReac Type Severity Reaction Status Date / Time No Known Allergies Allergy Verified 04/28/22 08:32 Review of Systems ROS Statement: Those systems with pertinent positive or pertinent negative responses have been documented in the HPI. ROS Other: All systems not noted in ROS Statement are negative. Past Medical History Additional Past Medical History / Comment(s): Migraines, UTI History of Any Multi-Drug Resistant Organisms: None Reported Additional Past Surgical History / Comment(s): [place] teeth Past Psychological History: Depression Smoking Status: Former smoker Past Alcohol Use History: None Reported Past Drug Use History: None Reported General Exam Limitations: no limitations General appearance: alert, in no apparent distress Head exam: Present: atraumatic, normocephalic Eye exam: Present: normal appearance, PERRL, EOMI Pupils: Present: normal accommodation ENT exam: Present: normal exam Neck exam: Present: normal inspection Respiratory exam: Present: normal lung sounds bilaterally Cardiovascular Exam: Present: regular rate, normal rhythm, normal heart sounds GI/Abdominal exam: Present: soft, normal bowel sounds Rectal exam: Present: deferred Extremities exam: Present: normal inspection, full ROM, normal capillary refill Back exam: Present: normal inspection, full ROM Neurological exam: Present: alert, oriented X3, CN II-XII intact, normal gait Psychiatric exam: Present: normal affect, normal mood Skin exam: Present: warm, dry Course Vital Signs 04/28/22 04/28/22 08:29 10:20 Temperature 98.5 F Pulse Rate 121 H 97 Respiratory 20 15 Rate Blood Pressure 131/84 126/82 O2 Sat by Pulse 97 100 Oximetry Medical Decision Making - Medical Decision Making The patient was seen and evaluated emergency department. Physical exam, the patient was sitting in bed without any acute distress. Vital signs admission did show tachycardia however the remainder of the left lower normal limits. The patient was not in acute distress. Because the patient is 14 weeks , the patient did not receive a normal headache cocktail instead did receive an IV with normal saline fluid, 1 g of Tylenol IV as well as 10 mg of Reglan as the patient tried multiple other medications in the past and was so it limited to the medication choices. The patient was allowed to remain stable emergency department on reevaluation several hours later stated that her headache was significantly improved. The patient was advised to follow-up with her neurologist as well as her STRUCTURES ENGINEER for continued workup and evaluation. The patient was able to tolerate by mouth in the emergency department and was able to inflate centimeters apart without any acute assistance. The patient stated her headache was greatly improved and she was back to her baseline. The patient was doing so for discharge and had all of her questions answered appropriately. The patient was discharged home in stable condition with her . Disposition Clinical Impression: Migraine headache Disposition: HOME SELF-CARE Condition: Stable Instructions (If sedation given, give patient instructions): Acute Headache (ED) Additional Instructions: Please follow up with your neurologist this week if possible for further evaluation and management. Please also follow up with her STRUCTURES ENGINEER for continued evaluation. Is patient prescribed a controlled substance at d/c from ED?: No Referrals: Harry Stevens III, MD [Primary Care Provider] - 1-2 days Time of Disposition: 10:15
[2022-04-28 10:21] VITALS: BP 126/82; PULSE 97; RESP 15
== END 2022-04-28 10:27 | disposition home or self-care (01) ==
LOC: EC 08:22
DX: O99.352 Diseases of the nervous system complicating pregnancy, second trimester (principal); G43.909 Migraine, unspecified, not intractable, without status migrainosus; Z3A.14 14 weeks gestation of pregnancy; Z87.891 Personal history of nicotine dependence
CPT/HCPCS: 96365 ×2; 96375 ×2; 96361; 99283 ×2; J2765; J0131

== ENCOUNTER → 2022-06-04 | Outpatient (CLI) | payer OTHER ==
--- NOTE | 2022-06-05 09:49 | US ---
EXAMINATION TYPE: US OB anatomy transabd DATE OF EXAM: 06/04/2022 COMPARISON: 04/02/2022 HISTORY: 31-year-old female [id number] MATERNAL CARE FOR EXCESS GROWTH Anatomy. . TECHNIQUE: Transabdominal (TA) FINDINGS: EXAM MEASUREMENTS: GESTATIONAL AGE / DATING Physician Established: (19 weeks/1 day) EDC: 10/28/2022 Dates by LMP: (19 weeks/1 days) EDC: 10/28/2022 Dates by First Scan: (18 weeks/4 days) EDC: 11/01/2022 Dates by Current Scan for: (18 weeks/6 days) EDC: 10/30/2022 SURVEY IUP: Single PLACENTA: Posterior PREVIA: Low-lying placenta. Measures 2.5 cm from internal os, post void. 1.6 cm from the internal os , prevoid. No tera previa. SIMON: 13.4 cm Normal CERVICAL LENGTH (transabdominal: norm > 3.0cm): 3.9 cm BIOMETRY PRESENTATION: Variable BPD: 4.41 cm 19 weeks / 2 days HC: 15.99 cm 18 weeks / 6 days AC: 13.85 cm 19 weeks / 2 days FL: 2.91 cm 19 weeks / 0 days ESTIMATED WEIGHT IN GRAMS: 274.08 grams ESTIMATED WEIGHT IN LBS/OZ: 0 lbs. 10 oz. WEIGHT PERCENTAGE BASED ON ESTABLISHED DATE: 43.0 % HC/AC: 1.15 Normal FL/AC: 21.04 HEART RATE: 159 bpm RHYTHM: Normal ANATOMY SEEN (within normal limits): Lateral Vent (< 1 cm) 0.64 cm Cisterna Magna (< 1.1 cm) 0.43 cm Nuchal Fold (< 0.6 cm) 0.27 cm Cerebellum (varies with age) 1.93 cm Choroid Plexus (bilateral) Midline Falx Cavus Septi Pellucidi Stomach Diaphragm Bladder Cord Insert Three Vessel Cord Longitudinal Spine Transverse Spine Arm # 2 Legs (bilateral) ANATOMY NOT SEEN (due to positioning): Four Chamber Heart Outflow tracts: LVOT/RVOT Situs Arm # 1 Kidneys (bilateral) Nose / Lips Stonecutter Apprentice Hand notes: Patient is scheduled to come back for OB call back for structures not visualized d ue to position. IMPRESSION: 1. Single live intrauterine with estimated gestational age of 19 weeks 1 day by LMP. Curren t ultrasound biometry is concordant (18 weeks 6 days). EFW 43rd percentile. Normal, 2 days more growt h than expected from 04/02/2022. 2. A number of structures on the survey could not be evaluated due to positioning (as not ed above). The patient is scheduled for a oblique call back to reassess these structures. The remaini ng visualized structures appear normal. 3. Note low lying posterior placenta measuring 2.5 cm from the internal cervical os.
== END | disposition home or self-care (01) ==
LOC: RADUSWWP 15:16
PROVIDERS: ATTEND Obstetrics & Gynecology
DX: O36.62X0 Maternal care for excessive fetal growth, second trimester, not applicable or unspecified (principal); Z3A.19 19 weeks gestation of pregnancy
CPT/HCPCS: 76811

== ENCOUNTER → 2022-06-08 | Outpatient (CLI) | payer OTHER ==
--- NOTE | 2022-06-08 16:12 | US ---
EXAMINATION TYPE: US OB Call Back DATE OF EXAM: 06/08/2022 COMPARISON: NONE CLINICAL HISTORY: 81-year-old female ADDITIONAL IMAGING. GESTATIONAL AGE / DATING Dates by Initial Survey Scan: (19 weeks/5 days) EDC: 10/28/2022 HEART RATE: 158 bpm RHYTHM: Normal ANATOMY SEEN (second anatomic survey look): Four Chamber Heart Stomach Situs Nose / Lips Kidneys (bilateral) Arms (bilateral) ANATOMY SUBOPTIMAL (due to positioning) Outflow tracts:? LVOT/RVOT IMPRESSION: The outflow tracts (LVOT/RVOT) remain suboptimally visualized. If desired, rescan can be performed in 1 to 2 weeks. Otherwise, the remaining structures appear normal.
== END | disposition home or self-care (01) ==
LOC: RADUSWWP 10:29
PROVIDERS: ATTEND Obstetrics & Gynecology
DX: Z36.89 Encounter for other specified antenatal screening (principal); Z3A.19 19 weeks gestation of pregnancy

== ENCOUNTER → 2022-07-26 | Outpatient (CLI) | payer OTHER ==
[2022-07-26 14:51] LABS: HCT 38.7 % (37.2-46.3); HGB 12.6 g/dL (12.0-15.0); MCH 30.1 pg (27.0-32.0); MCHC 32.6 g/dL (32.0-37.0); MCV 92.4 fL (80.0-97.0); Mean Platelet Volume 9.5 fL (9.5-12.2); NRBC Per 100 WBC 0 /100 WBCS (0.0-0.0); Platelet Count 377 X 10*3/uL (140-440); RBC 4.19 X 10*6/uL (4.10-5.20); RDW 13.7 % (11.5-14.5); WBC 9.12 X 10*3/uL (4.50-10.00)
== END | disposition home or self-care (01) ==
LOC: LABWHC1 08:48
PROVIDERS: ATTEND Obstetrics & Gynecology
DX: Z34.82 Encounter for supervision of other normal pregnancy, second trimester (principal); Z3A.00 Weeks of gestation of pregnancy not specified
CPT/HCPCS: 36415; 82950; 85027

== ENCOUNTER 2022-10-14 15:05 | Outpatient (CLI) | payer OTHER ==
[2022-10-14 15:30] LABS: Amorphous Sediment,Urine Moderate /hpf; Appearance,Urine Cloudy (Clear); Bilirubin,Urine Negative (Negative); Blood,Urine Negative (Negative); Color,Urine Yellow; Glucose,Urine (UA) Negative (Negative); Hyaline Casts,Urine 12 /lpf (0-2); Ketones,Urine Negative (Negative); Leukocyte Esterase,Urine Small (Negative); Mucus,Urine Many /hpf; Nitrite,Urine Negative (Negative); PH, Urine 6.5 (5.0-8.0); Protein,Urine 3+ (Negative); RBC,Urine 3 /hpf (0-5); Specific Gravity,Urine 1.023 (1.001-1.035); Squamous Epithelial Cell,Urine 15 /hpf (0-4); WBC,Urine 21 /hpf (0-5)
[2022-10-14 15:39] LABS: Creatinine,Urine Random 242.2 mg/dL
[2022-10-14 16:04] LABS: Basophils % (A) 0 %; Eosinophils # (A) 0.1 k/uL (0-0.7); Eosinophils % (A) 1 %; HCT 35.8 % (34.0-46.0); HGB 11.8 gm/dL (11.4-16.0); Lymphocytes # (A) 1.9 k/uL (1.0-4.8); Lymphocytes % (A) 22 %; MCH 28.4 pg (25.0-35.0); MCHC 33.1 g/dL (31.0-37.0); Mean Platelet Volume 7.8; Monocytes # (A) 0.5 k/uL (0-1.0); Monocytes % (A) 5 %; Neutrophils # (A) 6.1 k/uL (1.3-7.7); Neutrophils % (A) 71 %; Platelet Count 356 k/uL (150-450); Poikilocytosis Slight; RBC 4.16 m/uL (3.80-5.40); RDW 15.2 % (11.5-15.5); WBC 8.6 k/uL (3.8-10.6)
[2022-10-14 16:16] LABS: ALT 18 U/L (4-34); AST 18 U/L (14-36); African American GFR (CKD) >90 (>60 ml/min/1.73 sqM); Blood Urea Nitrogen 8 mg/dL (7-17); LDH 169 U/L (120-246); Non-African American GFR(CKD) >90 (>60 ml/min/1.73 sqM); Uric Acid 4.5 mg/dL (3.7-7.4)
[2022-10-14 17:02] VITALS: BP 112/76; PULSE 100; RESP 18; TEMP 96.8
--- NOTE | 2022-10-14 19:59 | P.MSEPDOC ---
Presenting Problems - Arrival Data Date of Arrival on Unit: 10/14/22 Time of Arrival on Unit: 15:05 Mode of Transport: Ambulatory - Complaint OB-Reason for Admission/Chief Complaint: Other Comment: PIH workup from office Medical History - Information : 3 Para: 2 Term: 2 : 0 Abortions: Spontaneous or Elective: 0 Number of Living Children: 2 - Gestational Age Gestational Age by ISAIAH (wks/days): 38 Weeks and 0 Days Review of Systems - Review of Systems Constitutional: No problems Breast: No problems ENT: No problems Cardiovascular: No problems Respiratory: No problems Gastrointestinal: No problems Genitourinary: No problems Musculoskeletal: No problems Neurological: No problems Skin: No problems Vital Signs - Temperature Temperature: 96.8 F Temperature Source: Temporal Artery Scan - Pulse Apical Pulse Rate: 100 Pulse Assessment Method: Pulse Oximetry - Respirations Respiratory Rate: 18 Oxygen Delivery Method: Room Air O2 Sat by Pulse Oximetry: 100 - Blood Pressure Right Arm Blood Pressure: 112/76 Blood Pressure Mean: 88 Blood Pressure Source: Automatic Cuff Medical Screen Scoring - Cervical Exam Dilation (cm): 1 Effacement (%): 50 Station: -3 Membranes: Intact - Assessment - Baby A Baseline FHR: 145 Heart Rate - NICHD Category: Category I (Normal) NST: Reactive Physician Notification - Physician Notified Physician Notified Date: 10/14/22 Physician Notified Time: 16:25 Physician: Luis Yanez New Order Received: Yes - Notification Comment Comment: Dr. Yanez reviewed labs, POC to sent pt home with a 24hr urine and return tomorrow for results and monitoring Maternal Triage Index - Maternal Triage Index Presenting for scheduled procedure w/no complaint: No - Stat/Priority 1 Stat Priority 1: No - Urgent/Priority 2 Urgent Priority 2: No - Prompt/Priority 3 Prompt Priority 3: No - Non-Urgent/Priority 4 Non-Urgent Priority 4: Yes Criteria Met for Priority 4: 38wks, high BP in office, currently 112/76 Disposition - Disposition OB Disposition: Discharge to home Discharge Date: 10/14/22 Discharge Time: 16:55 I agree with the RN Medical Screening Exam: Yes Case reviewed; plan agreed upon as documented in EMR&OBIX.: Yes Diagnosis: RELATED CONDITIONS, UNSPECIFIED, THIRD TRIMESTER (This patient is a pleasant 32-year-old 3 para 2 female who was sent over from the office for elevated blood pressure 140/92 1. Patient's care is per Dr. Dodd and it appears to be complicated by some intermittent mild blood pressure elevations. Patient did complain of some swelling in her hands and feet but otherwise has been feeling well. Patient's had 2 previous vaginal d eliveries and she reports no problems with blood pressure with those pregnancies. Blood pressures here on multiple readings are normal. Patient's blood pressures 112/76 and the highest blood pressure is 124/72. Preeclampsia labs are normal. She did however have 3+ protein on a clean catch urine specimen. This specimen however has large mucous and appears to be contaminated. I had a long discussion with the patient and her partner about these findings. At this point I do not have an indication to proceed with induction. I recommended we do a 24-hour urine to quantify her true proteinuria and she'll return in 24 hours to return this get serial pressures at that time as well. At this time, there is no evidence of preeclampsia or gestational hypertension. Patient is to return as instructed in 24 hours or when necessary.)
== END 2022-10-14 16:55 | disposition home or self-care (01) ==
LOC: FBPOP 15:05
PROVIDERS: ATTEND Obstetrics & Gynecology
DX: O26.893 Other specified pregnancy related conditions, third trimester (principal); Z3A.38 38 weeks gestation of pregnancy
CPT/HCPCS: 59025; 81001; 82565; 82570; 83615; 84156; 84450; 84460; 84520; 84550; 85025; 99215

== ENCOUNTER 2022-10-15 15:14 | Outpatient (CLI) | payer OTHER ==
[2022-10-15 17:09] LABS: Total Protein 24 Hour,Urine 374 mg/24hr (42.0-225.0); Total Volume 24 Hour,Urine 2875 mls (800-1800)
[2022-10-15 17:18] LABS: 24-hr Urine Specific Gravity 1.008 (1.001-1.035)
[2022-10-15 19:28] VITALS: BP 115/66; PULSE 120; RESP 16; TEMP 96.7
--- NOTE | 2022-10-16 10:33 | P.MSEPDOC ---
Presenting Problems - Arrival Data Date of Arrival on Unit: 10/15/22 Time of Arrival on Unit: 15:30 Mode of Transport: Ambulatory - Complaint OB-Reason for Admission/Chief Complaint: NST, Other Comment: 24 hour urine to lab. bp check Medical History - Information : 3 Para: 2 Term: 2 : 0 Abortions: Spontaneous or Elective: 0 Number of Living Children: 2 - Gestational Age Gestational Age by ISAIAH (wks/days): 38 Weeks and 1 Days - History Complications: Other Comment: perez and occasional epigastric. bp good at this time Review of Systems - Review of Systems Constitutional: No problems Breast: No problems ENT: No problems Cardiovascular: No problems Respiratory: No problems Gastrointestinal: No problems Genitourinary: No problems Musculoskeletal: No problems Neurological: No problems Skin: No problems Vital Signs - Temperature Temperature: 96.7 F Temperature Source: Temporal Artery Scan - Pulse Right Radial Pulse Rate: 120 Pulse Assessment Method: Automatic Cuff - Respirations Respiratory Rate: 16 Oxygen Delivery Method: Room Air O2 Sat by Pulse Oximetry: 98 - Blood Pressure Right Arm Blood Pressure: 115/66 Blood Pressure Mean: 82 Blood Pressure Source: Automatic Cuff Medical Screen Scoring - Uterine Contractions Intensity: Absent Resting: Soft to palpation - Assessment - Baby A Baseline FHR: 140 Heart Rate - NICHD Category: Category I (Normal) NST: Reactive Physician Notification - Physician Notified Physician Notified Date: 10/15/22 Physician Notified Time: 17:20 Physician: Reina Gregg Order Received: Yes - Notification Comment Comment: home with instructions. return if any increasing s/s of pih. follow up with mehdi on 's scheduled appt. rest over weekend. tylenol plain x2 for headache Maternal Triage Index - Scheduled/Requesting Priority 5 Scheduled/Requesting Priority 5: Yes Criteria Met for Priority 5: 24 hour urine , bp check, nst reactive, Disposition - Disposition OB Disposition: Physician follow up in office, Discharge to home, Written follow up instructions reviewed Discharge Date: 10/15/22 Discharge Time: 17:30 I agree with the RN Medical Screening Exam: Yes Physician's MSE Comment: Blood pressures are still normal. 24 hour urine shows mildly elevated protein. Patient will take Tylenol as needed for headache. Will return to see Dr. Dodd on Tuesday in the office. Case reviewed; plan agreed upon as documented in EMR&OBIX.: Yes Diagnosis: PROTEINURIA, UNSPECIFIED
== END 2022-10-15 17:30 | disposition home or self-care (01) ==
LOC: FBPOP 15:14
PROVIDERS: ATTEND Obstetrics & Gynecology
DX: R80.9 Proteinuria, unspecified (principal); Z3A.38 38 weeks gestation of pregnancy
CPT/HCPCS: 59025; 81050; 84156; 99215

== ENCOUNTER 2022-10-20 06:02 | Inpatient (IN) | payer OTHER ==
[2022-10-20] MEDS ORDERED: miSOPROStoL 200 MCG TAB PO PRN (06:15)
[2022-10-20] MEDS ORDERED: LIDOCAINE 0.5% (PF) 5 MG/ML (50 ML SDV) SQ PRN (06:15)
[2022-10-20] MEDS ORDERED: METHYLERGONOVINE 0.2 MG/ML 1 ML AMP IM PRN (06:15)
[2022-10-20] MEDS ORDERED: TRANEXAMIC ACID IN NACL,ISO-OS 1,000 MG in EMPTY BAG 1 BAG IV PRN (06:15)
[2022-10-20] MEDS ORDERED: CARBOPROST TROMETHAMINE 250 MCG/ML 1 ML AMP IM PRN (06:15)
[2022-10-20] MEDS ORDERED: TERBUTALINE 1 MG/ML VIAL SQ PRN (06:15)
[2022-10-20] MEDS ORDERED: OXYTOCIN 10 UNIT/ML 1 ML VIAL IM PRN (06:15)
[2022-10-20] MEDS: LACTATED RINGERS 1,000 ML IV SCH (06:33)
[2022-10-20 06:54] LABS: Basophils % (A) 0 %; Eosinophils # (A) 0.1 k/uL (0-0.7); Eosinophils % (A) 1 %; HGB 11.2 gm/dL (11.4-16.0); Lymphocytes % (A) 27 %; MCH 27.9 pg (25.0-35.0); MCHC 32.8 g/dL (31.0-37.0); MCV 84.9 fL (80.0-100.0); Mean Platelet Volume 7.9; Monocytes # (A) 0.5 k/uL (0-1.0); Monocytes % (A) 6 %; Neutrophils # (A) 4.9 k/uL (1.3-7.7); Neutrophils % (A) 65 %; Platelet Count 379 k/uL (150-450); RDW 15.3 % (11.5-15.5); WBC 7.5 k/uL (3.8-10.6)
[2022-10-20] MEDS: OXYTOCIN 30 UNITS/500 ML NS 30 UNIT in SALINE 1 500ML.BAG IV SCH ×2 (07:21→15:37)
--- NOTE | 2022-10-20 08:01 | P.HPOB ---
History of Present Illness H&P Date: 10/20/22 Chief Complaint: induction of labor 32 year old presents at 38 weeks 6 days for induction of labor. She has had intermittent high blood pressures and the 24 urine protein of 375 mg. She occasionally has headaches as well she has a diagnosis of gestational hypertension with possible preeclampsia. Her cervix is 37 m dilated, 70% effaced, -2 station. She is joya irregularly. heart tones 135 with moderate variability and reactive. Review of Systems All systems: negative Constitutional: Denies chills, Denies fever Eyes: denies blurred vision, denies pain Ears, nose, mouth and throat: Denies headache, Denies sore throat Cardiovascular: Denies chest pain, Denies shortness of breath Respiratory: Denies cough Gastrointestinal: Denies abdominal pain, Denies diarrhea, Denies nausea, Denies vomiting Genitourinary: Denies dysuria, Denies hematuria Musculoskeletal: Denies myalgias Integumentary: Denies pruritus, Denies rash Neurological: Denies numbness, Denies weakness Psychiatric: Denies anxiety, Denies depression Endocrine: Denies fatigue, Denies weight change Past Medical History Additional Past Medical History / Comment(s): Migraines, PCOS History of Any Multi-Drug Resistant Organisms: None Reported Additional Past Surgical History / Comment(s): [place] teeth Past Anesthesia/Blood Transfusion Reactions: No Reported Reaction Past Psychological History: ADD/ADHD, Depression Smoking Status: Never smoker Past Alcohol Use History: None Reported Past Drug Use History: None Reported Medications and Allergies Home Medications Medication Instructions Recorded Confirmed Type No Known Home Medications 10/20/22 10/20/22 History Allergies Allergy/AdvReac Type Severity Reaction Status Date / Time No Known Allergies Allergy Verified 10/20/22 06:15 Exam Osteopathic Statement: *. No significant issues noted on an osteopathic structural exam other than those noted in the History and Physical/Consult. Vital Signs Temp Pulse Resp BP Pulse Ox 10/20/22 06:14 97.1 F L 123 H 16 118/76 100 Intake and Output 10/19/22 10/20/22 10/20/22 22:59 06:59 14:59 Other: Weight 107.955 kg Heart: Regular rate and rhythm Lungs: Clear to auscultation bilaterally Abdomen: Soft, nontender Extremities: Negative Homans sign Results Result Diagrams: 10/20/22 06:01 Abnormal Lab Results - Last 24 Hours (Table) 10/20/22 Range/Units 06:01 Hgb 11.2 L (11.4-16.0) gm/dL Assessment and Plan (1) Gestational hypertension Current Visit: Yes Status: Acute Code(s): O13.9 - GESTATIONAL HTN W/O SIGNIFICANT PROTEINURIA, UNSP TRIMESTER SNOMED Code(s): 72320606 (2) 38 to 41 weeks gestation of Current Visit: Yes Status: Acute Code(s): RXN6444 - SNOMED Code(s): 992966197 Plan: 1. Induction of labor with amniotomy and Pitocin 2. Anticipate normal vaginal delivery 3. Monitor blood pressures closely
[2022-10-20] MEDS ORDERED: ROPIVACAINE 5 MG/ML 20 ML AMPULE ONE (10:15)
[2022-10-20] MEDS ORDERED: fentaNYL (PF) 50 MCG/ML 5 ML AMP ONE (10:15)
[2022-10-20] MEDS ORDERED: SODIUM CHLORIDE 0.9% 100 ML BAG ONE (10:15)
[2022-10-20] MEDS ORDERED: ZOLPIDEM 5 MG TAB PO PRN (16:50)
[2022-10-20] MEDS ORDERED: diphenhydrAMINE 25 MG CAP PO PRN (16:50)
[2022-10-20] MEDS ORDERED: SIMETHICONE 80 MG CHEWABLE PO PRN (16:50)
[2022-10-20] MEDS ORDERED: HYDROCORTISONE 2.5% RECTAL CREAM 30 GM TUBE RECTAL PRN (16:50)
[2022-10-20] MEDS ORDERED: diphenhydrAMINE 50 MG CAP PO PRN (16:50)
[2022-10-20] MEDS ORDERED: diphenhydrAMINE 50 MG/ML 1 ML VIAL IVP PRN ×2 (16:50)
[2022-10-20] MEDS ORDERED: BENZOCAINE/MENTHOL SPRAY 1 GM/SPRAY AEROSOL TOPICAL PRN (16:50)
[2022-10-20] MEDS ORDERED: LANOLIN CREAM 5 GM TUBE TOPICAL PRN (16:50)
--- NOTE | 2022-10-20 16:50 | P.PROBDLV ---
Vaginal Delivery Note - . Vaginal Delivery Note: 32 year old presents at 38 weeks 6 days for induction of labor. She has had intermittent high blood pressures and the 24 urine protein of 375 mg. She occasionally has headaches as well she has a diagnosis of gestational hypertension with possible preeclampsia. Her cervix is 37 m dilated, 70% effaced, -2 station. She is joya irregularly. heart tones 135 with moderate variability and reactive. Pitocin was started. Amniotomy performed at 7:47 AM, clear fluid noted. When she was uncomfortable she did get an epidural. Her cervix was completely dilated at 1458. She pushed, delivered a viable male infant over intact perineum under epidural anesthesia at 1505. Head delivered OA, anterior shoulder delivered gentle downward guidance for by posterior shoulder and rest of body. Nose and mouth bulb suctioned, cord clamped and cut, placed mother's abdomen. Apgars 8, 9, weight 9 lbs. 1 oz. Placenta delivered spontaneously, intact with three-vessel cord at 1507. Vagina, cervix, perineum inspected. First-degree midline laceration was repaired with 3-0 Vicryl. Estimated blood loss 75 mL. Mother and baby in stable condition.
[2022-10-20] MEDS ORDERED: OXYTOCIN 30 UNITS/500 ML NS 30 UNIT in SALINE 1 500ML.BAG IV SCH (17:00)
[2022-10-20] MEDS: IBUPROFEN 600 MG TAB PO PRN (18:39)
[2022-10-20] MEDS: ACETAMINOPHEN TAB 325 MG TAB PO PRN (22:16)
[2022-10-21] MEDS: IBUPROFEN 600 MG TAB PO PRN (03:17)
[2022-10-21] MEDS: SENNOSIDES-DOCUSATE SODIUM 1 EACH TAB PO SCH ×2 (04:51→08:46)
[2022-10-21] MEDS: LACTATED RINGERS 1,000 ML IV SCH ×2 (04:51→06:42)
[2022-10-21 07:29] LABS: Basophils % (A) 0 %; Eosinophils # (A) 0.1 k/uL (0-0.7); Eosinophils % (A) 1 %; HGB 10.4 gm/dL (11.4-16.0); Lymphocytes # (A) 2.2 k/uL (1.0-4.8); Lymphocytes % (A) 24 %; MCH 27.9 pg (25.0-35.0); MCHC 32.6 g/dL (31.0-37.0); MCV 85.5 fL (80.0-100.0); Mean Platelet Volume 7.7; Monocytes # (A) 0.5 k/uL (0-1.0); Monocytes % (A) 6 %; Neutrophils % (A) 66 %; Platelet Count 302 k/uL (150-450); RBC 3.75 m/uL (3.80-5.40); RDW 15.5 % (11.5-15.5); WBC 9.1 k/uL (3.8-10.6)
[2022-10-21] MEDS: ACETAMINOPHEN TAB 325 MG TAB PO PRN (08:46)
--- NOTE | 2022-10-21 09:09 | P.DS ---
Providers Date of admission: 10/20/22 06:02 Expected date of discharge: 10/21/22 Attending physician: Katiana Dodd Primary care physician: Stated None - Discharge Diagnosis(es) (1) Gestational hypertension Current Visit: Yes Status: Resolved (2) 38 to 41 weeks gestation of Current Visit: Yes Status: Resolved (3) Normal vaginal delivery Current Visit: Yes Status: Acute Hospital Course: Patient presented for induction of labor. She underwent a 2-stage induction of labor. Patient had a normal vaginal delivery. course has been uncomplicated. She denies nausea, vomiting, chest pain, shortness of breath or any calf pain. She's and bleeding and voiding without difficulty. Patient will be discharged home day #1 in stable condition to follow-up with me in 6 weeks. Plan - Discharge Summary Discharge Rx Participant: No New Discharge Prescriptions: New Ibuprofen [Motrin] 600 mg PO Q6HR PRN #30 tab PRN Reason: Mild Pain (Scale 1 To 3) Discharge Medication List Ibuprofen [Motrin] 600 mg PO Q6HR PRN #30 tab 10/21/22 [Rx] Follow up Appointment(s)/Referral(s): Katiana Dodd DO [Doctor of Osteopathic Medicine] - 12/02/22 10:45 am Discharge Disposition: HOME SELF-CARE
[2022-10-21 10:32] VITALS: BP 130/84; PULSE 95; RESP 18; TEMP 97.7
--- NOTE | 2022-11-03 12:28 | CDI ---
Documentation Clarification Form Date: 11/03/2022 12:13:49 PM From: Susan Hyman Admit Date: 10/20/2022 6:02:00 AM Patient Name: Aminta Badillo Visit Number: [id number] Discharge Date: 10/21/2022 3:52:00 PM ATTENTION: The Clinical Documentation Specialists (CDI) and [facility] Coding Staff appreciate your assistance in clarifying documentation. Please respond to the clarification below the line at the bottom and electronically sign. The CDI & [facility] Coding staff will review the response and follow-up if needed. Please note: Queries are made part of the Legal Health Record. If you have any questions, please contact the author of this message via ITS. Dr. Katiana Dodd Gestational Hypertension with possible pre-eclampsia is documented in the H&P and delivery note 10/20/22, but is not noted in subsequent documentation. Clarification is requested. History/Risk Factors: patient is a 32 year old, 38 weeks , admitted for IOL. She has intermittent high blood pressures and the 24 hour urine protein is 375mg. Clinical Indicators: patient has occasional headaches, and a diagnosis of gestational hypertension with possible preeclampsia. Vitals: Temp 97.1 Pulse 123 Resp 16 BP 118/76 pulse ox 100 Treatment: IOL with amniotomy and Pitocin, monitor blood pressures Please clarify the Pre-ecampsia and severity of mild, moderate, or severe if known : [ ] Pre-eclampsia confirmed, remains under treatment, severity [ ] Pre-eclampsia confirmed, resolved, severity - [ x ] Pre-eclampsia ruled out [ x ] Other condition, please specify _gestational hypertension [ ] Unable to determine MTDD
== END 2022-10-21 15:52 | disposition home or self-care (01) | DRG 807 ==
LOC: 4FBP 06:02
PROVIDERS: ADMIT Obstetrics & Gynecology; ATTEND Obstetrics & Gynecology
PROC: 3E033VJ Introduction of Other Hormone into Peripheral Vein, Percutaneous Approach (ICD-10-PCS; principal; 2022-10-20)
PROC: 10E0XZZ Delivery of Products of Conception, External Approach (ICD-10-PCS; principal; 2022-10-20)
PROC: 10907ZC Drainage of Amniotic Fluid, Therapeutic from Products of Conception, Via Natural or Artificial Opening (ICD-10-PCS; principal; 2022-10-20)
PROC: 0HQ9XZZ Repair Perineum Skin, External Approach (ICD-10-PCS; principal; 2022-10-20)
DX: O13.4 Gestational [pregnancy-induced] hypertension without significant proteinuria, complicating childbirth (principal); O99.344 Other mental disorders complicating childbirth; O70.0 First degree perineal laceration during delivery; F90.9 Attention-deficit hyperactivity disorder, unspecified type; F32.A Depression, unspecified; O99.284 Endocrine, nutritional and metabolic diseases complicating childbirth; E28.2 Polycystic ovarian syndrome; Z28.310 Unvaccinated for COVID-19; Z3A.38 38 weeks gestation of pregnancy; Z37.0 Single live birth
CPT/HCPCS: 85025; 86850; 86900; 86901

== ENCOUNTER 2022-11-24 05:32 | Observation (INO) | payer OTHER ==
[2022-11-24] MEDS ORDERED: SODIUM CHLORIDE 0.9% 1,000 ML IV STA ×2 (06:12→07:45)
[2022-11-24] MEDS ORDERED: ONDANSETRON 4 MG/2 ML VIAL IVP STA (06:12)
[2022-11-24] MEDS ORDERED: MORPHINE SULFATE 4 MG/ML SYRINGE IVP STA (06:12)
--- NOTE | 2022-11-24 06:12 | ED ---
Abdominal Pain HPI - General Chief Complaint: Abdominal Pain Stated Complaint: Back and Abd Pain Time Seen by Provider: 11/24/22 06:01 Source: patient, RN notes reviewed Mode of arrival: ambulatory Limitations: no limitations - History of Present Illness Initial Comments: Patient is a 32-year-old female presenting to the emergency room with complaints of sudden right upper quadrant abdominal pain which began in the middle of the night waking her with associated nausea and vomiting. She denies any chest pain, diarrhea, dysuria, urinary frequency, fevers or chills. She is complaining of a headache but reports that she has migraines and her headache is unchanged from her classic migraine symptoms. She is also complaining of shortness of breath related to the inability to take in a deep breath due to her right upper quadrant pain. She is 5 weeks from a vaginal delivery in which she was induced for due to preclampsia which was not treated with medication. Her [employer] is Dr. Dodd; she is a . She denies any other p ostpartum complications. In addition to her migraine history she has a past medical history significant for polycystic ovarian syndrome. - Related Data Home Medications Medication Instructions Recorded Confirmed Breast Feeding Vit (Unknown) 2 tab PO TID 11/24/22 11/24/22 Multivitamins, Thera [Multivitamin 1 tab PO BID 11/24/22 11/24/22 (formulary)] Allergies Allergy/AdvReac Type Severity Reaction Status Date / Time No Known Allergies Allergy Verified 11/24/22 08:31 Review of Systems ROS Statement: Those systems with pertinent positive or pertinent negative responses have been documented in the HPI. ROS Other: All systems not noted in ROS Statement are negative. Past Medical History Additional Past Medical History / Comment(s): Migraines, PCOS History of Any Multi-Drug Resistant Organisms: None Reported Additional Past Surgical History / Comment(s): [place] teeth Past Anesthesia/Blood Transfusion Reactions: No Reported Reaction Past Psychological History: ADD/ADHD, Depression Smoking Status: Never smoker Past Alcohol Use History: Rare Past Drug Use History: None Reported General Exam Limitations: no limitations General appearance: alert, in no apparent distress Head exam: Present: atraumatic, normocephalic, normal inspection Eye exam: Present: normal appearance, PERRL, EOMI. Absent: scleral icterus, conjunctival injection, periorbital swelling ENT exam: Present: normal exam, mucous membranes moist Neck exam: Present: normal inspection, full ROM Respiratory exam: Present: normal lung sounds bilaterally. Absent: respiratory distress, wheezes, rales, rhonchi, stridor Cardiovascular Exam: Present: regular rate, normal rhythm, normal heart sounds. Absent: systolic murmur, diastolic murmur, rubs, gallop, clicks GI/Abdominal exam: Present: soft, tenderness (Right upper quadrant), normal bowel sounds. Absent: distended, guarding, rebound, rigid Rectal exam: Present: deferred Extremities exam: Present: normal inspection, full ROM. Absent: pedal edema, joint swelling Back exam: Present: normal inspection Neurological exam: Present: alert, oriented X3, CN II-XII intact Psychiatric exam: Present: normal affect, normal mood Skin exam: Present: warm, dry, intact, normal color. Absent: rash Course Vital Signs 11/24/22 11/24/22 11/24/22 05:34 06:25 07:30 Temperature 97.6 F Pulse Rate 101 H 90 75 Respiratory 18 20 18 Rate Blood Pressure 153/96 123/83 125/60 O2 Sat by Pulse 98 98 100 Oximetry 11/24/22 08:21 Temperature Pulse Rate 86 Respiratory 18 Rate Blood Pressure 122/82 O2 Sat by Pulse 96 Oximetry Medical Decision Making - Medical Decision Making Was pt. sent in by a medical professional or institution ([employer], SEGMENTAL PAVER INSTALLER, urgent care, hospital, or correction...) When possible be specific @ -No Did you speak to anyone other than the patient for history (EMS, parent, family, police, friend...)? What history was obtained from this source @ -No Did you review nursing and triage notes (agree or disagree)? Why? @ -I reviewed and agree with nursing and triage notes Were old charts reviewed (outside hosp., previous admission, EMS record, old EKG, old radiological studies, urgent care reports/EKG's, correction records)? Report findings @ -No old charts were reviewed Differential Diagnosis (chest pain, altered mental status, abdominal pain women, abdominal pain men, vaginal bleeding, weakness, fever, dyspnea, syncope, headache, dizziness, GI bleed, back pain, seizure, CVA, palpatations, mental health, musculoskeletal)? @ -Differential Abdominal Pain Women: Appendicitis, Cholecystitis, diverticulosis, ischemic bowel, pancreatitis, hepatitis, UTI, gastroenteritis, AAA, incarcerated hernia, bowel obstruction, constipation, inflammatory bowel, hepatitis, peptic ulcer disease, splenic infarction, perforated viscus, vulvitis, ovarian torsion, PID, kidney stone, placenta abruption, this is not meant to be an all-inclusive list EKG interpreted by me (3pts min.). @ -None done X-rays interpreted by me (1pt min.). @ -None done CT interpreted by me (1pt min.). @ -None done U/S. @ -Ultrasound gallbladder not interpreted by me: What testing was considered but not performed or refused? (CT, X-rays, U/S, labs)? Why? @ -None What meds were considered but not given or refused? Why? @ -Antihypertensives and magnesium considered but deferred due to first repeat blood pressure normalizing and initial blood pressure less than 160 systolic and 100 diastolic Did you discuss the management of the patient with other professionals (professionals i.e. , PA, SEGMENTAL PAVER INSTALLER, lab, RT, psych nurse, forensic social worker, contact finger assembler, teacher, staff air defense officer, medical case manager)? Give summary @ -No Was smoking cessation discussed for >3mins.? @ -No Was critical care preformed (if so, how long)? @ -No Were there social determinants of health that impacted care today? How? (Homelessness, low income, unemployed, alcoholism, drug addiction, transportation, low edu. Level, literacy, decrease access to med. care, care home, rehab)? @ -No Was there de-escalation of care discussed even if they declined (Discuss DNR or withdrawal of care, Hospice)? DNR status @ -No What co-morbidities impacted this encounter? (DM, HTN, Smoking, COPD, CAD, Cancer, CVA, ARF, Chemo, Hep., AIDS, mental health diagnosis, sleep apnea, morbid obesity)? @ -5 weeks Was patient admitted / discharged? Hospital course, mention meds given and route, prescriptions, significant lab abnormalities, going to OR and other pertinent info. @ -32-year-old female presenting to the emergency room with complaints of sudden onset of right upper quadrant pain with associated nausea and vomiting. She has shortness of breath due to pain along with a headache which she reports is like her migraine headache. It is 5 weeks from induced vaginal delivery without complications. Will begin preeclampsia workup along with workup for abdominal pain with ultrasound of the gallbladder, CBC, CMP, amylase, lipase, LDH, uric acid, lactic acid and urinalysis. Will give 1 L IV fluids, Zofran and morphine. Pain improved with morphine, no further emesis after Zofran. After pain medication blood pressure significantly improved initial 123/83 will continue to monitor blood pressures every hour. Laboratory study results include CBC with elevated WBC 11.7, elevated neutrophils 8.6. CMP slightly elevated BUN 21, creatinine normal, electrolytes normal. Glucose elevated 123 mild transaminitis AST 49, ALTs 66 normal alkaline phosphate, normal bilirubin. Amylase raised at 164, lipase normal. Uric acid, LDH and lactic acid normal. Urinalysis reveals moderate leukocyte esterase with rare bacteria and squamous epithelial cells. No protein or ketones. Due to normalization of blood pressure along with normal ur ic acid, LDH and lack of proteinuria will defer contacting PRODUCTION ADMINISTRATOR until workup of right upper quadrant pain complete. Ultrasound of the gallbladder demonstrates cholelithiasis with out, mild dilatation or gallbladder wall thickening. Pain recurred after morphine. Will give Dilaudid and an additional 1 L of IV hydration. Spoke with Dr. Vanegas regarding laboratory results and ultrasound results. She reports that she would like patient treated for acute cholecystitis in the setting of elevated WBC count. She advised admission to her services with clear liquid diet and antibiotic therapy. Will initiate these orders in addition to continuing antiemetics, analgesics and IV hydration. These findings and recommendations were discussed with patient at length. She is agreeable to hospitalization and treatment plan. WIll admit patient in stable condition to medical surgical unit under Dr. Vanegas for further evaluation and treatment of acute cholecystitis. Undiagnosed new problem with uncertain prognosis? @ -No Drug Therapy requiring intensive monitoring for toxicity (Heparin, Nitro, Insulin, Cardizem)? @ -No Were any procedures done? @ -No Diagnosis/symptom? @ -Acute cholecystitis Acute, or Chronic, or Acute on Chronic? @ -Acute Uncomplicated (without systemic symptoms) or Complicated (systemic symptoms)? @ -Complicated Side effects of treatment? @ -No Exacerbation, Progression, or Severe Exacerbation? @ -No Poses a threat to life or bodily function? How? (Chest pain, [place], OR, pneumonia, PE, COPD, DKA, ARF, appy, cholecystitis, CVA, Diverticulitis, Homicidal, Suicidal, threat to staff... and all critical care pts) @ -Yes, at risk for hepatic complications, worsening infection including but not limited to potential for sepsis and septic shock. Case discussed with Dr. Pfeiffer. - Lab Data Result diagrams: 11/24/22 06:06 11/24/22 06:06 Lab Results 11/24/22 11/24/22 11/24/22 Range/Units 06:06 06:06 06:06 WBC 11.7 H (3.8-10.6) k/uL RBC 5.27 (3.80-5.40) m/uL Hgb 14.4 D (11.4-16.0) gm/dL Hct 43.7 (34.0-46.0) % MCV 83.0 (80.0-100.0) fL MCH 27.3 (25.0-35.0) pg MCHC 32.9 (31.0-37.0) g/dL RDW 15.4 (11.5-15.5) % Plt Count 267 (150-450) k/uL MPV 7.5 Neutrophils % 73 % Lymphocytes % 18 % Monocytes % 5 % Eosinophils % 2 % Basophils % 0 % Neutrophils # 8.6 H (1.3-7.7) k/uL Lymphocytes # 2.1 (1.0-4.8) k/uL Monocytes # 0.5 (0-1.0) k/uL Eosinophils # 0.3 (0-0.7) k/uL Basophils # 0.0 (0-0.2) k/uL Sodium 141 (137-145) mmol/L Potassium 4.5 (3.5-5.1) mmol/L Chloride 105 (98-107) mmol/L Carbon Dioxide 27 (22-30) mmol/L Anion Gap 9 mmol/L BUN 21 H (7-17) mg/dL Creatinine 0.85 (0.52-1.04) mg/dL Est GFR (CKD-EPI)AfAm >90 (>60 ml/min/1.73 sqM) Est GFR (CKD-EPI)NonAf >90 (>60 ml/min/1.73 sqM) Glucose 123 H (74-99) mg/dL Plasma Lactic Acid [place] 1.7 (0.7-2.0) mmol/L Uric Acid 5.8 (3.7-7.4) mg/dL Calcium 9.1 (8.4-10.2) mg/dL Total Bilirubin 0.4 (0.2-1.3) mg/dL AST 49 H (14-36) U/L ALT 66 H (4-34) U/L Alkaline Phosphatase 91 (38-126) U/L Lactate Dehydrogenase 196 (120-246) U/L Total Protein 7.0 (6.3-8.2) g/dL Albumin 4.0 (3.5-5.0) g/dL Amylase 164 H (30-110) U/L Lipase 119 (23-300) U/L Urine Color Urine Appearance (Clear) Urine pH (5.0-8.0) Ur Specific [place] (1.001-1.035) Urine Protein (Negative) Urine Glucose (UA) (Negative) Urine Ketones (Negative) Urine Blood (Negative) Urine Nitrite (Negative) Urine Bilirubin (Negative) Urine Urobilinogen (<2.0) mg/dL Ur Leukocyte Esterase (Negative) Urine RBC (0-5) /hpf Urine WBC (0-5) /hpf Urine WBC Clumps (None) /hpf Ur Squamous Epith Cells (0-4) /hpf Urine Bacteria (None) /hpf Urine Mucus (None) /hpf 11/24/22 Range/Units 06:27 WBC (3.8-10.6) k/uL RBC (3.80-5.40) m/uL Hgb (11.4-16.0) gm/dL Hct (34.0-46.0) % MCV (80.0-100.0) fL MCH (25.0-35.0) pg MCHC (31.0-37.0) g/dL RDW (11.5-15.5) % Plt Count (150-450) k/uL MPV Neutrophils % % Lymphocytes % % Monocytes % % Eosinophils % % Basophils % % Neutrophils # (1.3-7.7) k/uL Lymphocytes # (1.0-4.8) k/uL Monocytes # (0-1.0) k/uL Eosinophils # (0-0.7) k/uL Basophils # (0-0.2) k/uL Sodium (137-145) mmol/L Potassium (3.5-5.1) mmol/L Chloride (98-107) mmol/L Carbon Dioxide (22-30) mmol/L Anion Gap mmol/L BUN (7-17) mg/dL Creatinine (0.52-1.04) mg/dL Est GFR (CKD-EPI)AfAm (>60 ml/min/1.73 sqM) Est GFR (CKD-EPI)NonAf (>60 ml/min/1.73 sqM) Glucose (74-99) mg/dL Plasma Lactic Acid [place] (0.7-2.0) mmol/L Uric Acid (3.7-7.4) mg/dL Calcium (8.4-10.2) mg/dL Total Bilirubin (0.2-1.3) mg/dL AST (14-36) U/L ALT (4-34) U/L Alkaline Phosphatase (38-126) U/L Lactate Dehydrogenase (120-246) U/L Total Protein (6.3-8.2) g/dL Albumin (3.5-5.0) g/dL Amylase (30-110) U/L Lipase (23-300) U/L Urine Color Yellow Urine Appearance Clear (Clear) Urine pH 6.0 (5.0-8.0) Ur Specific [place] 1.022 (1.001-1.035) Urine Protein Negative (Negative) Urine Glucose (UA) Negative (Negative) Urine Ketones Negative (Negative) Urine Blood Negative (Negative) Urine Nitrite Negative (Negative) Urine Bilirubin Negative (Negative) Urine Urobilinogen <2.0 (<2.0) mg/dL Ur Leukocyte Esterase Moderate H (Negative) Urine RBC 2 (0-5) /hpf Urine WBC 9 H (0-5) /hpf Urine WBC Clumps Rare H (None) /hpf Ur Squamous Epith Cells 12 H (0-4) /hpf Urine Bacteria Rare H (None) /hpf Urine Mucus Rare H (None) /hpf - Radiology Data Radiology results: report reviewed, image reviewed Disposition Clinical Impression: Acute cholecystitis Disposition: ADMITTED IP TO THIS [facility] Time of Disposition: 08:28
[2022-11-24 06:26] LABS: ALT 66 U/L (4-34); AST 49 U/L (14-36); African American GFR (CKD) >90 (>60 ml/min/1.73 sqM); Alkaline Phosphatase 91 U/L (38-126); Amylase 164 U/L (30-110); Anion Gap 9 mmol/L; Blood Urea Nitrogen 21 mg/dL (7-17); Calcium 9.1 mg/dL (8.4-10.2); Carbon Dioxide 27 mmol/L (22-30); Chloride 105 mmol/L (98-107); Glucose 123 mg/dL (74-99); LDH 196 U/L (120-246); Lipase 119 U/L (23-300); Non-African American GFR(CKD) >90 (>60 ml/min/1.73 sqM); Potassium 4.5 mmol/L (3.5-5.1); Sodium 141 mmol/L (137-145); Total Bilirubin 0.4 mg/dL (0.2-1.3); Uric Acid 5.8 mg/dL (3.7-7.4)
[2022-11-24 06:27] LABS: Basophils % (A) 0 %; Eosinophils # (A) 0.3 k/uL (0-0.7); Eosinophils % (A) 2 %; HCT 43.7 % (34.0-46.0); Lymphocytes # (A) 2.1 k/uL (1.0-4.8); Lymphocytes % (A) 18 %; MCH 27.3 pg (25.0-35.0); MCHC 32.9 g/dL (31.0-37.0); Mean Platelet Volume 7.5; Monocytes # (A) 0.5 k/uL (0-1.0); Monocytes % (A) 5 %; Neutrophils # (A) 8.6 k/uL (1.3-7.7); Neutrophils % (A) 73 %; Platelet Count 267 k/uL (150-450); RBC 5.27 m/uL (3.80-5.40); RDW 15.4 % (11.5-15.5); WBC 11.7 k/uL (3.8-10.6)
[2022-11-24 06:37] LABS: HGB 14.4 gm/dL (11.4-16.0)
[2022-11-24 07:04] LABS: Appearance,Urine Clear (Clear); Bacteria,Urine Rare /hpf; Bilirubin,Urine Negative (Negative); Blood,Urine Negative (Negative); Color,Urine Yellow; Glucose,Urine (UA) Negative (Negative); Ketones,Urine Negative (Negative); Leukocyte Esterase,Urine Moderate (Negative); Mucus,Urine Rare /hpf; Nitrite,Urine Negative (Negative); Protein,Urine Negative (Negative); RBC,Urine 2 /hpf (0-5); Specific Gravity,Urine 1.022 (1.001-1.035); Squamous Epithelial Cell,Urine 12 /hpf (0-4); Urobilinogen,Urine <2.0 mg/dL (<2.0); WBC,Urine 9 /hpf (0-5)
--- NOTE | 2022-11-24 07:37 | US ---
EXAMINATION TYPE: US gallbladder DATE OF EXAM: 11/24/2022 COMPARISON: CT 05/24/2021 CLINICAL INDICATION: Female, 32 years old with history of RUQ pain; RUQ pain x 6 hours. Patient is 5 weeks post . TECHNIQUE: Multiple sonographic images of the right upper quadrant are obtained. FINDINGS: EXAM MEASUREMENTS: Liver Length: 16.8 cm Gallbladder Wall: 0.24 cm CBD: 0.52 cm Right Kidney: 11.9 x 6.2 x 4.8 cm ANIMAL HUSBANDRY MANAGER NOTES: *Exam is limited due to gas. Pancreas: Portions seen appear wnl Liver: Appears wnl Gallbladder: Appears enlarged measuring 11.4 cm in length. Multiple mobile hyperechoic foci with posterior shadowing seen within. *Hypoechoic area seen adjacent to the gallbladder: 3.1 x 0.8 x 0.6 cm. Evidence for sonographic Cox's sign: No CBD: Portions seen appear wnl Right Kidney: No hydronephrosis or masses seen The visualized portion of the pancreas is unremarkable. The tail is obscured by overlying bowel gas. Liver diffusely hyperechoic without focal lesion. Mildly prominent gallbladder with multiple gallston es identified. Region of focal fatty sparing adjacent to the gallbladder. No wall thickening or peric holecystic fluid. Common bile duct is within normal limits. Right kidney is unremarkable without evid ence of hydronephrosis, nephrolithiasis, or solid mass. IMPRESSION: 1. Cholelithiasis without evidence for acute cholecystitis. 2. Hepatic steatosis.
[2022-11-24] MEDS ORDERED: HYDROmorphone 1 MG/ML 1 ML SYRINGE IVP STA (07:45)
[2022-11-24] MEDS ORDERED: NALOXONE 0.4 MG/ML 1 ML VIAL IV PRN (08:28)
[2022-11-24] MEDS ORDERED: AMPICILLIN-SULBACTAM 3 GM in SODIUM CHLORIDE 0.9% 50 ML IVPB SCH (08:45)
[2022-11-24] MEDS: SODIUM CHLORIDE 0.9% 1,000 ML IV SCH ×2 (09:10→22:30)
[2022-11-24] MEDS: AMPICILLIN-SULBACTAM 3 GM in SODIUM CHLORIDE 0.9% 100 ML IVPB SCH ×3 (10:40→20:14)
[2022-11-24] MEDS: ONDANSETRON 4 MG/2 ML VIAL IVP PRN (10:48)
[2022-11-24] MEDS: HYDROmorphone 1 MG/ML 1 ML SYRINGE IVP PRN (12:29)
--- NOTE | 2022-11-24 12:53 | P.GSHP ---
History of Present Illness H&P Date: 11/24/22 CHIEF COMPLAINT: Abdominal pain HISTORY OF PRESENT ILLNESS: This is a 32-year-old female who presents with complaint of right upper quadrant abdominal pain that started last night associated with nausea and vomiting. Patient is 5 weeks from a vaginal delivery. She was induced due to preeclampsia. Patient denies any fever, chills or sweats. She does have a decreased appetite. She does report having similar symptoms in the past after taking migraine medication. Gallbladder ultrasound shows evidence of cholelithiasis. She does have mildly elevated LFTs. PAST MEDICAL HISTORY: See list. PAST SURGICAL HISTORY: See list. MEDICATIONS: See list. ALLERGIES: See list. SOCIAL HISTORY: No illicit drug use. REVIEW OF SYSTEMS: CONSTITUTIONAL: Denies fever or chills. HEENT: Denies blurred vision, vision changes, or eye pain. Denies hemoptysis ENDOCRINE: Denies heat or cold intolerance. CARDIOVASCULAR: Denies chest pain or pressure. RESPIRATORY: No shortness of breath. GASTROINTESTINAL: Denies abdominal pain. Denies nausea or vomiting. NEURO: Denies history of seizures. PSYCH: No depression or suicidal ideation HEMATOLOGIC: Denies bleeding disorders. LYMPHATIC: The patient denies any lumps and bumps around the neck. GENITOURINARY: Denies any blood in urine or increased urinary frequency. MUSCULOSKELETAL: Denies myalgias. Denies joint swelling. Denies decreased range of motion beyond patients baseline. SKIN: Denies pruitis. Denies rash. PHYSICAL EXAM: VITAL SIGNS: Reviewed GENERAL: Well-developed in no acute distress. HEENT: No sclera icterus. Extraocular movements grossly intact. Moist buccal mucosa. Head is atraumatic, normocephalic. Hears conversational speech. No nasal drainage. NECK: Supple without lymphadenopathy. CHEST: Non-labored respirations and equal bilateral excursions. CARDIOVASCULAR: Palpable 2+ radial pulses. ABDOMEN: Soft. Nondistended. Tenderness in right upper quadrant MUSCULOSKELETAL: No clubbing or cyanosis. NEUROLOGIC: No focal or lateralizing signs. Cranial nerves II through XII grossly intact. PSYCH: Appropriate affect. Alert and oriented to person, place and time. SKIN: Well perfused. Good skin turgor. LABORATORY DATA: WBC is 11.7 Hgb 14.4 platelets 267 Sodium 141 potassium 4.5 creatinine 0.85 Total bilirubin 0.4 AST 49 ALT 66 alk phos 91 Lipase 119 IMAGING: Gallbladder ultrasound cholelithiasis without evidence for acute cholecystitis. Hepatic steatosis ASSESSMENT: 1. Symptomatic cholelithiasis 2. Mildly elevated liver enzymes 3. 5 weeks PLAN: -Patient scheduled for Robotic cholecystectomy tomorrow, 11/25/[address] Jean -Okay for clear liquid diet today -Nothing by mouth after midnight -Repeat labs in a.m. -Continue IV antibiotics -Continue IV fluids -Continue antiemetics and pain medication as needed -Discussed with patient that she needs to waist the breast milk for 24-48 hours after surgery due to the anesthesia Physician Trade Economist note has been reviewed by physician. Signing provider agrees with the documented findings, assessment, and plan of care. Past Medical History Additional Past Medical History / Comment(s): Migraines, PCOS History of Any Multi-Drug Resistant Organisms: None Reported Additional Past Surgical History / Comment(s): Astor teeth Past Anesthesia/Blood Transfusion Reactions: No Reported Reaction Past Psychological History: ADD/ADHD, Depression Smoking Status: Never smoker Past Alcohol Use History: Rare Past Drug Use History: None Reported - Past Family History Mother Family Medical History: Thyroid Disorder Father Family Medical History: Diabetes Mellitus, Hypertension Medications and Allergies Home Medications Medication Instructions Recorded Confirmed Type Breast Feeding Vit (Unknown) 2 tab PO TID 11/24/22 11/24/22 History Multivitamins, Thera [Multivitamin 1 tab PO BID 11/24/22 11/24/22 History (formulary)] Allergies Allergy/AdvReac Type Severity Reaction Status Date / Time No Known Allergies Allergy Verified 11/24/22 08:31 Surgical - Exam Vital Signs Temp Pulse Resp BP Pulse Ox 97.6 F 101 H 18 153/96 98 11/24/22 05:34 11/24/22 05:34 11/24/22 05:34 11/24/22 05:34 11/24/22 05:34 Results - Labs 11/24/22 06:06 11/24/22 06:06 Abnormal Lab Results - Last 24 Hours (Table) 11/24/22 11/24/22 11/24/22 Range/Units 06:06 06:06 06:27 WBC 11.7 H (3.8-10.6) k/uL Neutrophils # 8.6 H (1.3-7.7) k/uL BUN 21 H (7-17) mg/dL Glucose 123 H (74-99) mg/dL AST 49 H (14-36) U/L ALT 66 H (4-34) U/L Amylase 164 H (30-110) U/L Ur Leukocyte Esterase Moderate H (Negative) Urine WBC 9 H (0-5) /hpf Urine WBC Clumps Rare H (None) /hpf Ur Squamous Epith Cells 12 H (0-4) /hpf Urine Bacteria Rare H (None) /hpf Urine Mucus Rare H (None) /hpf Diabetes panel 11/24/22 Range/Units 06:06 Sodium 141 (137-145) mmol/L Potassium 4.5 (3.5-5.1) mmol/L Chloride 105 (98-107) mmol/L Carbon Dioxide 27 (22-30) mmol/L BUN 21 H (7-17) mg/dL Creatinine 0.85 (0.52-1.04) mg/dL Glucose 123 H (74-99) mg/dL Calcium 9.1 (8.4-10.2) mg/dL AST 49 H (14-36) U/L ALT 66 H (4-34) U/L Alkaline Phosphatase 91 (38-126) U/L Total Protein 7.0 (6.3-8.2) g/dL Albumin 4.0 (3.5-5.0) g/dL Calcium panel 11/24/22 Range/Units 06:06 Calcium 9.1 (8.4-10.2) mg/dL Albumin 4.0 (3.5-5.0) g/dL Pituitary panel 11/24/22 Range/Units 06:06 Sodium 141 (137-145) mmol/L Potassium 4.5 (3.5-5.1) mmol/L Chloride 105 (98-107) mmol/L Carbon Dioxide 27 (22-30) mmol/L BUN 21 H (7-17) mg/dL Creatinine 0.85 (0.52-1.04) mg/dL Glucose 123 H (74-99) mg/dL Calcium 9.1 (8.4-10.2) mg/dL Adrenal panel 11/24/22 Range/Units 06:06 Sodium 141 (137-145) mmol/L Potassium 4.5 (3.5-5.1) mmol/L Chloride 105 (98-107) mmol/L Carbon Dioxide 27 (22-30) mmol/L BUN 21 H (7-17) mg/dL Creatinine 0.85 (0.52-1.04) mg/dL Glucose 123 H (74-99) mg/dL Calcium 9.1 (8.4-10.2) mg/dL Total Bilirubin 0.4 (0.2-1.3) mg/dL AST 49 H (14-36) U/L ALT 66 H (4-34) U/L Alkaline Phosphatase 91 (38-126) U/L Total Protein 7.0 (6.3-8.2) g/dL Albumin 4.0 (3.5-5.0) g/dL
[2022-11-24] MEDS ORDERED: HYDROmorphone (PF) 1 MG/ML ONE (17:26)
[2022-11-24] MEDS ORDERED: SUCCINYLCHOLINE CHLORIDE 200 MG/10 ML VIAL IV ONE (17:26)
[2022-11-24] MEDS ORDERED: fentaNYL (PF) 50 MCG/ML 2 ML AMP ONE (17:26)
[2022-11-24] MEDS ORDERED: GLYCOPYRROLATE 0.2 MG/ML 2 ML VIAL ONE (17:26)
[2022-11-24] MEDS ORDERED: ONDANSETRON 4 MG/2 ML VIAL ONE (17:26)
[2022-11-24] MEDS ORDERED: ceFAZolin 1,000 MG VIAL ONE (17:26)
[2022-11-24] MEDS ORDERED: NEOSTIGMINE 1 MG/ML 10 ML VIAL ONE (17:26)
[2022-11-24] MEDS ORDERED: PROPOFOL 10 MG/ML 20 ML VIAL IV ONE (17:26)
[2022-11-24] MEDS ORDERED: LIDOCAINE 2% INJ 20 MG/ML (2 ML VIAL) ONE (17:26)
[2022-11-24] MEDS ORDERED: ROCURONIUM 10 MG/ML (5 ML VIAL) IV ONE (17:26)
[2022-11-24] MEDS: KETOROLAC 15 MG/ML 1 ML VIAL IVP SCH ×2 (17:32→23:56)
[2022-11-24] MEDS: ACETAMINOPHEN TAB 500 MG TAB PO SCH ×2 (17:33→23:58)
[2022-11-24] MEDS: LORazepam 1 MG TAB PO PRN (19:10)
[2022-11-25] MEDS: LORazepam 1 MG TAB PO PRN ×4 (00:37→21:41)
--- NOTE | 2022-11-25 02:34 | P.PN ---
Progress Note - Text Progress Note Date: 11/24/22 patient covered by [facility] service
[2022-11-25] MEDS: AMPICILLIN-SULBACTAM 3 GM in SODIUM CHLORIDE 0.9% 100 ML IVPB SCH ×4 (02:38→21:41)
[2022-11-25] MEDS: KETOROLAC 15 MG/ML 1 ML VIAL IVP SCH ×4 (05:23→19:45)
[2022-11-25] MEDS: ACETAMINOPHEN TAB 500 MG TAB PO SCH ×4 (05:24→23:25)
[2022-11-25 07:50] LABS: Basophils % (A) 0 %; Eosinophils # (A) 0.3 k/uL (0-0.7); Eosinophils % (A) 5 %; HCT 41.2 % (34.0-46.0); HGB 12.8 gm/dL (11.4-16.0); Lymphocytes # (A) 1.9 k/uL (1.0-4.8); Lymphocytes % (A) 38 %; MCHC 31.2 g/dL (31.0-37.0); MCV 86.8 fL (80.0-100.0); Mean Platelet Volume 7.6; Monocytes # (A) 0.3 k/uL (0-1.0); Monocytes % (A) 6 %; Neutrophils # (A) 2.5 k/uL (1.3-7.7); Neutrophils % (A) 49 %; Platelet Count 250 k/uL (150-450); RBC 4.75 m/uL (3.80-5.40); RDW 15.6 % (11.5-15.5)
[2022-11-25 08:02] LABS: ALT 64 U/L (4-34); AST 34 U/L (14-36); African American GFR (CKD) >90 (>60 ml/min/1.73 sqM); Albumin 3.2 g/dL (3.5-5.0); Albumin/Globulin Ratio 1.2; Alkaline Phosphatase 73 U/L (38-126); Anion Gap 7 mmol/L; Blood Urea Nitrogen 11 mg/dL (7-17); Calcium 8.3 mg/dL (8.4-10.2); Carbon Dioxide 26 mmol/L (22-30); Chloride 106 mmol/L (98-107); Globulin 2.6 g/dL; Glucose 87 mg/dL (74-99); Non-African American GFR(CKD) >90 (>60 ml/min/1.73 sqM); Potassium 4.3 mmol/L (3.5-5.1); Sodium 139 mmol/L (137-145); Total Bilirubin 0.3 mg/dL (0.2-1.3); Total Protein 5.8 g/dL (6.3-8.2)
[2022-11-25] MEDS: HEPARIN SODIUM,PORCINE/PF 5,000 UNIT/0.5 ML SYRINGE SQ SCH ×2 (08:45→21:41)
[2022-11-25] MEDS: MORPHINE SULFATE 2 MG/ML SYRINGE IVP PRN (08:51)
[2022-11-25] MEDS ORDERED: INDOCYANINE GREEN 25 MG VIAL IV STA (08:52)
[2022-11-25] MEDS: SODIUM CHLORIDE 0.9% 1,000 ML IV SCH ×2 (13:07→23:26)
[2022-11-25] MEDS ORDERED: IV FLUID CONTINUATION 1,000 ML IV ONE (15:52)
[2022-11-25] MEDS ORDERED: ONDANSETRON 4 MG/2 ML VIAL IVP ONE (16:11)
[2022-11-25] MEDS ORDERED: DEXAMETHASONE SOD PHOSPHATE 4 MG/ML 1 ML VIAL IVP ONE (16:11)
[2022-11-25] MEDS ORDERED: MIDAZOLAM 2 MG/2 ML VIAL IVP ONE (16:11)
[2022-11-25] MEDS ORDERED: SODIUM CHLORIDE 0.9% 100 ML with ceFAZolin 2,000 MG IV ONE ×2 (17:50)
[2022-11-25] MEDS ORDERED: BUPIVACAINE (PF) 0.25% 30 ML VIAL SQ ONE (18:01)
[2022-11-25] MEDS ORDERED: HYDROmorphone 0.5 MG/0.5 ML SYRINGE IVP ONE ×4 (19:00→19:53)
--- NOTE | 2022-11-25 19:22 | P.OP ---
Date of Procedure: 11/25/22 Description of Procedure: SURGEON: KAROL NINO MD PREOPERATIVE DIAGNOSES: 1. Acute cholecystitis due to cystic duct obstruction 2. Symptomatic gallstones 3. Right upper quadrant abdominal pain 4. , 5 weeks 5. Morbid obesity due to excess calories , BMI 37.2 6. Attention deficit disorder with attention deficit hyperactivity disorder 7. Depressive disorder 8. Polycystic ovarian syndrome 9. Migraines POSTOPERATIVE DIAGNOSES: 1. Acute on chronic cholecystitis due to cystic duct obstruction 2. Symptomatic gallstones 3. Right upper quadrant abdominal pain 4. , 5 weeks 5. Morbid obesity due to excess calories , BMI 37.2 6. Attention deficit disorder with attention deficit hyperactivity disorder 7. Depressive disorder 8. Polycystic ovarian syndrome 9. Migraines 10. Hydrops cholecystitis OPERATION: Robotic-assisted da Gabriela Xi laparoscopic cholecystectomy, multiport with FIREFLY ESTIMATED BLOOD LOSS: 20 mL. SPECIMENS REMOVED: Gallbladder. COMPLICATIONS: None. OPERATIVE FINDINGS: 1. Bleeding along the skin edges without bleeding along liver bed 2. Moderately distended gallbladder for hydrops cholecystitis 3. Common bile duct identify within normal limits 4. Minimal manipulation on gallbladder to limit gallstone migration INDICATIONS: The patient is a 32-year-old female who is 5 weeks presents with symptomatic gallstones and acute cholecystitis. Robotic assisted laparoscopic approach was described. Benefits and risks of the procedure including but not limited to bleeding, infection, injury to the biliary tree was described. Informed consent was obtained. DESCRIPTION OF PROCEDURE: Patient was brought to the operating room, placed in supine position. After general induction, the abdomen had been prepped and draped in standard sterile fashion. The robotic da Gabriela XI system was primed. After a timeout protocol was performed, the patient had been prepped and draped in standard sterile fashion. The patient was injected with indocyanine green. A 5 mm 0 degrees laparoscopic trocar entry was performed along the left upper quadrant. The abdomen insufflated to 15 mmHg pressure which was tolerated well. Diagnostic laparoscopy demonstrated no injury to bowel viscera or mesentery. The liver surface was unremarkable. Next, two 8 mm robotic ports were placed along the right upper abdomen. The camera 8-mm port was maintained along the epigastrium. Another 8 mm port was placed along the left upper abdominal wall after exchanging the 5 mm port. Please note that the ports were placed at least 10 to 15 cm away from the target anatomy of the gallbladder. The robot was docked along the left lateral abdomen. The patient was repositioned in reverse Trendelenburg position. Using a grasper for arm 3, a grasper for arm 4, including hook cautery for arm 1, the robotic system was docked and primed as described. Instruments were interchanged by the administrative office assistant including hook cautery, Bovie cautery and clip appliers. I had sat at the console. Minimal manipulation of the gallbladder occurred to limit migration of gallstones. The gallbladder was moderately distended consistent with hydrops cholecystitis. Dome down technique from the fundus towards the infundibulum was performed using hook cautery. Next attention was brought to the infundibulum and cystic structures. The infundibulum and cystic duct were dissected free from surrounding tissues. The cystic duct was isolated. FIREFLY was used to identify the cystic artery and cystic structures. A critical view of safety was obtained. Large PLASTIC clips were used throughout the entire case. Using a clip project facilitator, 2 clips were placed at the junction of the infundibulum and cystic duct. The cystic duct was divided between clips. Next, the cystic artery was similarly clipped and cauterized. Electro-Bovie cautery was used to remove the gallbladder from the hepatic fossa. Hemostasis was checked and found to be adequate. The robot was undocked. I re-scrubbed into the case. Using a 10 mm Endo Catch bag via the left upper quadrant incision, the specimen was removed from the abdominal cavity after widening the incision. [place] and 0 Vicryl was used to close the fascia. All pneumoperitoneum instruments were evacuated from the abdominal cavity. The incisions were reapproximated using 4-0 Monocryl in an interrupted subcuticular fashion. Please note along the trocar sites, local anesthetic was placed as a field block prior to insertion of all instruments. Liquid glue was applied to the skin. At the end of the procedure needle, sponge, and instrument count had been verified correct by the rn medical surgical. The patient was transferred to postanesthesia care unit in stable condition. Intraoperative films were shared with the patient's family.
[2022-11-25] MEDS ORDERED: LACTATED RINGERS 1,000 ML IV ONE (20:00)
[2022-11-25] MEDS: ONDANSETRON 4 MG/2 ML VIAL IVP PRN (21:45)
[2022-11-25] MEDS: HYDROmorphone 1 MG/ML 1 ML SYRINGE IVP PRN (22:11)
[2022-11-25] MEDS: SIMETHICONE 80 MG CHEWABLE PO SCH (22:19)
--- NOTE | 2022-11-25 23:48 | P.CONS ---
History of Present Illness - Reason for Consult Consult date: 11/25/22 Medical management - Chief Complaint Abdominal pain - History of Present Illness Patient is a 32-year-old female with a known history of migraine headaches, PCOS, ADD/ADHD, depression presents to ER with complaints of abdominal pain since last night. Pain is mainly in the right upper quadrant and below the right shoulder blade. Associated with nausea and episode of vomiting. Nonbilious and unable to tolerate oral diet. Denies any complaints of chest pain or shortness of breath. No fever no chills. Patient is on room air on admission. Patient is currently 5 weeks from vaginal delivery and was diagnosed with preeclampsia during . On admission ultrasound the gallbladder showed cholelithiasis without evidence for acute cholecystitis. Hepatic steatosis. Laboratory data showed WBC 11.7 hemoglobin 14.4 and platelets 267 neutrophils 8.6 sodium 141 potassium 4.5 chloride 105 bicarb is 27 BUN 21 creatinine 0.85 and blood sugar is 123, AST 49 ALT 66 and alk phos 91. Amylase 164 and lipase 119. Urinalysis is negative infection. Review of Systems Constitutional: Patient denies any fever or chills . no Generalized weakness. Abdomen: Patient patient does have nausea vomiting abdominal pain. No diarrhea. Cardiovascular: Patient denies any chest pain or short of breath no palpitations. Respiratory: patient denied any cough . no sputum production. No shortness of breath Neurologic: Patient denied any numbness or tingling headache. Musculoskeletal: Patient denies any complaints of joint swelling or deformity. Skin: Negative Psychiatric: Negative Endocrine: No heat or cold intolerance. No recent weight gain. Genitourinary: No dysuria or hematuria. All other 14 point ROS negative except the above Past Medical History Additional Past Medical History / Comment(s): Migraines, PCOS History of Any Multi-Drug Resistant Organisms: None Reported Additional Past Surgical History / Comment(s): Sanderson teeth Past Anesthesia/Blood Transfusion Reactions: No Reported Reaction Past Psychological History: ADD/ADHD, Depression Smoking Status: Never smoker Past Alcohol Use History: Rare Past Drug Use History: None Reported - Past Family History Mother Family Medical History: Thyroid Disorder Father Family Medical History: Diabetes Mellitus, Hypertension Medications and Allergies Home Medications Medication Instructions Recorded Confirmed Type Breast Feeding Vit (Unknown) 2 tab PO TID 11/24/22 11/24/22 History Multivitamins, Thera [Multivitamin 1 tab PO BID 11/24/22 11/24/22 History (formulary)] Acetaminophen Tab [Tylenol Tab] 1,000 mg PO Q6HR PRN #30 tablet 11/25/22 Rx Ibuprofen [Motrin] 600 mg PO Q8HR PRN #30 tab 11/25/22 Rx Simethicone [Gas-X] 125 mg PO AC-TID PRN #20 capsule 11/25/22 Rx Allergies Allergy/AdvReac Type Severity Reaction Status Date / Time No Known Allergies Allergy Verified 11/24/22 08:31 Physical Exam Vitals: Vital Signs Temp Pulse Resp BP Pulse Ox 11/25/22 07:18 98.5 F 74 18 132/82 98 11/25/22 00:12 98.2 F 70 14 108/69 95 11/24/22 19:50 16 11/24/22 18:05 71 16 132/89 96 11/24/22 17:00 98.4 F 78 18 118/70 97 11/24/22 12:52 98.2 F 80 16 120/83 96 Intake and Output 11/24/22 11/25/22 11/25/22 22:59 06:59 14:59 Intake Total 240 1000 Output Total 600 Balance -360 1000 Intake: Intake, IV Titration 1000 Amount Ampicillin-Sulbactam 3 gm 100 In Sodium Chloride 0.9% 100 ml @ 200 mls/hr IVPB Q6H [facility] Rx#:[id number] Sodium Chloride 0.9% 1, 900 000 ml @ 75 mls/hr IV . [id number] [facility] Rx#:[id number] Oral 240 Output: Urine 600 Other: Voiding Method Toilet # Voids 2 PHYSICAL EXAMINATION: Patient is lying in the bed comfortably, no acute distress, awake alert and oriented.. HEENT: Normocephalic. Neck is supple. Pupils reactive. Nostrils clear. Oral cavity is moist. Neck reveals no JVD, carotid bruits, or thyromegaly. CHEST EXAMINATION: Trachea is central. Symmetrical expansion. Lung russell clear to auscultation and percussion. CARDIAC: Normal S1, S2 with no gallops. No murmurs ABDOMEN: Soft. Bowel sounds present. Right upper quadrant tenderness, Cox sign positive. Mild guarding. No rigidity.. No organomegaly. No abdominal bruits. Extremities: reveal no edema. No clubbing or cyanosis Neurologically awake, alert, oriented x3 with well-coordinated movements. No focal deficits noted Skin: No rash or skin lesions. Psychiatric: Coperative. Nonsuicidal, Musculoskeletal: No joint swelling or deformity. Normal range of motion. Results CBC & Chem 7: 11/25/22 05:44 11/25/22 05:44 Labs: Abnormal Lab Results - Last 24 Hours (Table) 11/25/22 11/25/22 Range/Units 05:44 05:44 RDW 15.6 H (11.5-15.5) % Calcium 8.3 L (8.4-10.2) mg/dL ALT 64 H (4-34) U/L Total Protein 5.8 L (6.3-8.2) g/dL Albumin 3.2 L (3.5-5.0) g/dL Assessment and Plan Assessment: Right upper quadrant pain with possible symptomatic cholelithiasis. Mild transaminitis Hepatic steatosis 5-week from vaginal delivery and induced due to preeclampsia. PCOS Migraine headaches DVT prophylax with heparin subcu Plan: Patient will be continued on IV hydration and nothing by mouth. General surgery is planning for cholecystectomy today. Continue with empiric antibiotics in the form of Unasyn. Pain management. Repeat liver enzymes are trending down. We will continue to follow and further recommendations based on the clinical course. Thank you for your consult.
[2022-11-26] MEDS: HYDROmorphone 1 MG/ML 1 ML SYRINGE IVP PRN ×4 (01:10→11:29)
[2022-11-26] MEDS: AMPICILLIN-SULBACTAM 3 GM in SODIUM CHLORIDE 0.9% 100 ML IVPB SCH ×2 (02:09→08:25)
[2022-11-26] MEDS: LORazepam 1 MG TAB PO PRN (02:10)
[2022-11-26] MEDS: ACETAMINOPHEN TAB 500 MG TAB PO SCH ×2 (05:25→12:35)
[2022-11-26] MEDS: KETOROLAC 15 MG/ML 1 ML VIAL IVP SCH ×2 (05:26→12:34)
[2022-11-26] MEDS: MORPHINE SULFATE 2 MG/ML SYRINGE IVP PRN ×3 (06:25→14:40)
[2022-11-26] MEDS ORDERED: LACTATED RINGERS 1,000 ML IV SCH (07:12)
[2022-11-26] MEDS ORDERED: SODIUM CHLORIDE 0.9% 2,000 ML IV ONE (07:12)
[2022-11-26 07:39] VITALS: BP 144/92; PULSE 93; RESP 20; TEMP 97.6
[2022-11-26] MEDS: HEPARIN SODIUM,PORCINE/PF 5,000 UNIT/0.5 ML SYRINGE SQ SCH (08:25)
[2022-11-26] MEDS: SIMETHICONE 80 MG CHEWABLE PO SCH ×2 (08:25→12:34)
[2022-11-26 11:02] LABS: Basophils # (A) 0.01 X 10*3/uL (0.00-0.10); Basophils % (A) 0.1 %; Eosinophils # (A) 0.01 X 10*3/uL (0.04-0.35); Eosinophils % (A) 0.1 %; HCT 40.6 % (37.2-46.3); HGB 12.6 g/dL (12.0-15.0); Immature Grans, Automated 0.2 %; Lymphocytes # (A) 1.76 X 10*3/uL (0.90-5.00); Lymphocytes % (A) 20.4 %; MCH 26.9 pg (27.0-32.0); MCV 86.6 fL (80.0-97.0); Mean Platelet Volume 9.6 fL (9.5-12.2); Monocytes # (A) 0.43 X 10*3/uL (0.20-1.00); NRBC Per 100 WBC 0 /100 WBCS (0.0-0.0); Neutrophils # (A) 6.38 X 10*3/uL (1.80-7.70); Neutrophils % (A) 74.2 %; Platelet Count 282 X 10*3/uL (140-440); RBC 4.69 X 10*6/uL (4.10-5.20); RDW 15.4 % (11.5-14.5); WBC 8.61 X 10*3/uL (4.50-10.00)
[2022-11-26 11:07] LABS: African American GFR (CKD) 102.3 (60.0-200.0); Albumin 3.7 g/dL (3.8-4.9); Albumin/Globulin Ratio 1.51 (1.60-3.17); Anion Gap 10.8 mmol/L (10.00-18.00); BUN/Creat Ratio 11.76 Ratio (12.00-20.00); Blood Urea Nitrogen 10.1 mg/dL (9.0-27.0); Carbon Dioxide 23.8 mmol/L (20.0-27.5); Globulin 2.4 g/dL (1.6-3.3); Non-African American GFR(CKD) 88.3 (60.0-200.0); Potassium 4.4 mmol/L (3.5-5.5); Total Bilirubin 0.2 mg/dL (0.30-1.20); Total Protein 6.1 g/dL (6.2-8.2)
--- NOTE | 2022-11-26 15:43 | P.PN ---
Subjective Progress Note Date: 11/26/22 32-year-old female with a known history of migraine headaches, PCOS, ADD/ADHD, depression presents to ER with complaints of abdominal pain since last night. Pain is mainly in the right upper quadrant and below the right shoulder blade. Associated with nausea and episode of vomiting. Nonbilious and unable to tolerate oral diet. Denies any complaints of chest pain or shortness of breath. No fever no chills. Patient is on room air on admission. Patient is currently 5 weeks from vaginal delivery and was diagnosed with preeclampsia during . On admission ultrasound the gallbladder showed cholelithiasis without evidence for acute cholecystitis. Hepatic steatosis. Laboratory data showed WBC 11.7 hemoglobin 14.4 and platelets 267 neutrophils 8.6 sodium 141 potassium 4.5 chloride 105 bicarb is 27 BUN 21 creatinine 0.85 and blood sugar is 123, AST 49 ALT 66 and alk phos 91. Amylase 164 and lipase 119. Urinalysis is negative infection. Patient has been cleared for discharge by general surgery; continues to be in pain requiring Alexander; we will discharge her Alexander 5 mg 3 times a day when necessary for 3 days Objective - Vital Signs Vital signs: Vital Signs Temp 97.6 F 11/26/22 07:15 Pulse 93 11/26/22 07:15 Resp 20 11/26/22 07:15 BP 144/92 11/26/22 07:15 Pulse Ox 90 L 11/26/22 07:15 FiO2 Intake & Output 11/25/22 11/26/22 11/26/22 18:59 06:59 18:59 Intake Total 800 1940 Output Total 20 Balance 780 1940 Weight 98.203 kg 98.203 kg Intake: IV 800 300 Intake, IV Titration 1100 Amount Ampicillin-Sulbactam 3 gm 200 In Sodium Chloride 0.9% 100 ml @ 200 mls/hr IVPB Q6H [facility] Rx#:[id number] Sodium Chloride 0.9% 100 900 ml @ 0 mls/hr IV .STK-MED ONE with ceFAZolin 2,000 mg Rx#:[id number] Oral 540 Output: Estimated Blood Loss 20 Other: Voiding Method Toilet # Voids 2 1 - Exam Patient is lying in the bed comfortably, no acute distress, awake alert and oriented.. HEENT: Normocephalic. Neck is supple. Pupils reactive. Nostrils clear. Oral cavity is moist. Neck reveals no JVD, carotid bruits, or thyromegaly. CHEST EXAMINATION: Trachea is central. Symmetrical expansion. Lung russell clear to auscultation and percussion. CARDIAC: Normal S1, S2 with no gallops. No murmurs ABDOMEN: Soft. Bowel sounds present. Right upper quadrant tenderness, Cox sign positive. Mild guarding. No rigidity.. No organomegaly. No abdominal bruits. Extremities: reveal no edema. No clubbing or cyanosis Neurologically awake, alert, oriented x3 with well-coordinated movements. No focal deficits noted Skin: No rash or skin lesions. Psychiatric: Coperative. Nonsuicidal, Musculoskeletal: No joint swelling or deformity. Normal range of motion. - Labs CBC & Chem 7: 11/26/22 05:37 11/26/22 05:37 Labs: Abnormal Lab Results - Last 24 Hours (Table) 11/26/22 11/26/22 Range/Units 05:37 05:37 MCH 26.9 L (27.0-32.0) pg MCHC 31.0 L (32.0-37.0) g/dL RDW 15.4 H (11.5-14.5) % Eosinophils # 0.01 L (0.04-0.35) X 10*3/uL BUN/Creatinine Ratio 11.76 L (12.00-20.00) Ratio Total Bilirubin 0.20 L (0.30-1.20) mg/dL AST 39 H (13-35) U/L ALT 78 H (8-44) U/L Total Protein 6.1 L (6.2-8.2) g/dL Albumin 3.7 L (3.8-4.9) g/dL Albumin/Globulin Ratio 1.51 L (1.60-3.17) g/dL Microbiology - Last 24 Hours (Table) 11/24/22 09:15 Blood Culture - Preliminary Blood 11/24/22 09:00 Blood Culture - Preliminary Blood Assessment and Plan Assessment: Right upper quadrant pain with possible symptomatic cholelithiasis. Mild transaminitis Hepatic steatosis 5-week from vaginal delivery and induced due to preeclampsia. PCOS Migraine headaches DVT prophylax with heparin subcu Plan: Patient will be continued on IV hydration and nothing by mouth. General surgery is planning for cholecystectomy today. Continue with empiric antibiotics in the form of Unasyn. Pain management. Repeat liver enzymes are trending down. We will continue to follow and further recommendations based on the clinical course.
== END 2022-11-26 15:39 | disposition home or self-care (01) ==
LOC: EC 05:32 → 5NMEDONC 08:27 → INTOOBSV 08:27 → 5NMEDONC 09:10
PROVIDERS: ADMIT Surgery Plastic and Reconstructive Surgery; ATTEND Surgery Plastic and Reconstructive Surgery
DX: K80.13 Calculus of gallbladder with acute and chronic cholecystitis with obstruction (principal); R74.8 Abnormal levels of other serum enzymes; E28.2 Polycystic ovarian syndrome; G43.909 Migraine, unspecified, not intractable, without status migrainosus; F90.9 Attention-deficit hyperactivity disorder, unspecified type; F32.A Depression, unspecified; Z87.59 Personal history of other complications of pregnancy, childbirth and the puerperium; Z83.3 Family history of diabetes mellitus; Z82.49 Family history of ischemic heart disease and other diseases of the circulatory system; Z83.49 Family history of other endocrine, nutritional and metabolic diseases; E66.01 Morbid (severe) obesity due to excess calories; Z68.37 Body mass index [BMI] 37.0-37.9, adult
CPT/HCPCS: 96361; 96374; 96375; 99285; 36415; 81025 ×2; 80053 ×3; 82150; 83605; 83615; 83690; 84550; 85025 ×3; 81001; 76705; 47563; G0378 ×3; J2250; J0330; J2270 ×3; J1100; J2710; J2405 ×2; J0690 ×2; J3010; J1170 ×4; J0295 ×3; J1885 ×3; J2704; J1644 ×2; J2001; 88304

== ENCOUNTER → 2023-08-25 | Outpatient (CLI) | payer OTHER ==
--- NOTE | 2023-08-25 13:01 | US ---
EXAMINATION TYPE: US OB >= 14 wk fetus DATE OF EXAM: 08/25/2023 COMPARISON: None CLINICAL INDICATION: Female, 33 years old with history of Z34.93 ENCNTR FOR SUPRVSN OF NORMAL PREG, U NSP, TH; Measuring large at office TECHNIQUE: Transabdominal (TA) GESTATIONAL AGE / DATING Physician Established: (29 weeks/2 days) EDC: 11/08/2023 Dates by LMP: NA ( weeks/ days) EDC: Dates by First Scan: NA ( weeks/ days) EDC: Dates by Current Scan: (28 weeks/4 days) EDC: 11/13/2023 Beta HCG (if available): Not available at this time SURVEY IUP: Single PLACENTA: Posterior PREVIA: No Previa SIMON: 9.83; ML Pocket 5.8 cm cm Normal CERVICAL LENGTH (transabdominal: norm > 3.0cm): 4.0 cm CERVICAL LENGTH (transvaginal: norm> 2.5cm): NA cm (Supplemental transvaginal imaging performed to verify cervical length.) BIOMETRY PRESENTATION: Vertex LIE: Longitudinal BPD: 6.99 cm 28 weeks / 1 days HC: 26.17 cm 28 weeks / 4 days AC: 24.12 cm 28 weeks / 3 days FL: 5.44 cm 28 weeks / 6 days ESTIMATED WEIGHT IN GRAMS: 1238 grams ESTIMATED WEIGHT IN LBS/OZ: 2 lbs. 12 oz. WEIGHT PERCENTAGE BASED ON ESTABLISHED DATES: 15% HC/AC: 1.08 Normal FL/AC: 23% Normal HEART RATE: 132 bpm RHYTHM: Normal MATERNAL WALL MEASUREMENT: NA cm from skin to anterior uterine wall (if exam limited due to body habi tus). IMPRESSION: Single viable uterine .
== END | disposition home or self-care (01) ==
LOC: RADUSWWP 12:30
PROVIDERS: ATTEND Obstetrics & Gynecology
DX: Z34.93 Encounter for supervision of normal pregnancy, unspecified, third trimester (principal)
CPT/HCPCS: 76805

== ENCOUNTER → 2023-10-17 | Outpatient (CLI) | payer OTHER ==
--- NOTE | 2023-10-17 17:53 | US ---
EXAMINATION TYPE: US OB >= 14 wk fetus DATE OF EXAM: 10/17/2023 COMPARISON: us 08/25/2023 CLINICAL INDICATION: Female, 33 years old with history of Z34.93 ENCNTR FOR SUPRVSN OF NORMAL PREG, U NSP, TH; Small for dates TECHNIQUE: Transabdominal (TA) GESTATIONAL AGE / DATING Physician Established: (36 weeks/6 days) EDC: 11/08/2023 Dates by LMP: ( weeks/ days) EDC: Dates by First Scan: ( weeks/ days) EDC: Dates by Current Scan: (36 weeks/0 days) EDC: 11/14/2023 Beta HCG (if available): SURVEY IUP: Single PLACENTA: Posterior PREVIA: No Previa SIMON: 11.0 cm Normal CERVICAL LENGTH (transabdominal: norm > 3.0cm): 3.6 cm CERVICAL LENGTH (transvaginal: norm> 2.5cm): cm (Supplemental transvaginal imaging performed to verify cervical length.) BIOMETRY PRESENTATION: Vertex LIE: Longitudinal BPD: 8.8 cm 35 weeks / 4 days HC: 31.5 cm 35 weeks / 3 days AC: 33.2 cm 37 weeks / 1 days FL: 6.9 cm 35 weeks / 3 days ESTIMATED WEIGHT IN GRAMS: 2907 grams ESTIMATED WEIGHT IN LBS/OZ: 6 lbs. 7 oz. WEIGHT PERCENTAGE BASED ON ESTABLISHED DATES: 41% HC/AC: 0.95 Normal FL/AC: 21% Normal HEART RATE: 139 bpm RHYTHM: Normal MATERNAL WALL MEASUREMENT: NA cm from skin to anterior uterine wall (if exam limited due to body habi tus). IMPRESSION: 1. Single intrauterine gestation estimated at 36 weeks 0 days gestation. Cardiac activity measures 1 39 bpm. 2. Estimated weight 2907 g.
== END | disposition home or self-care (01) ==
LOC: RADUSWWP 14:32
PROVIDERS: ATTEND Obstetrics & Gynecology
DX: Z34.93 Encounter for supervision of normal pregnancy, unspecified, third trimester (principal); Z3A.36 36 weeks gestation of pregnancy
CPT/HCPCS: 76805